=== PATIENT | female | born 1965 | race Caucasian/White ===

== ENCOUNTER 2017-12-31 07:58 | Outpatient (REF) | payer BC, SELFPAY ==
[2017-12-31 13:08] LABS: Hemoglobin A1C 8.8 % (4.5-6.2)
[2018-01-01 14:01] LABS: Varicella IgG Antibody Positive
== END 2017-12-31 08:18 ==
LOC: NCHCN 07:58
PROVIDERS: PCP Family Medicine; Visit Provider Family Medicine
DX: Z00.00 Encounter for general adult medical examination without abnormal findings (principal); E11.65 Type 2 diabetes mellitus with hyperglycemia; Z11.59 Encounter for screening for other viral diseases
CPT/HCPCS: 86787; 83036

== ENCOUNTER 2018-12-27 14:10 | Outpatient (REF) | payer BC, SELFPAY ==
[2018-12-27 18:43] LABS: HCT 35.6 % (36.0-46.0); HGB 11.4 g/dL (12.0-15.5); Mean Corpuscular Hemoglobin 28.6 pg (27.0-33.0); Mean Corpuscular Volume 89.4 fL (80-95); Mean Platelet Volume 11.9 fL (8.0-11.0); Platelet Count 261 x1000/uL (130-400); RBC 3.98 m/cumm (4.00-5.20); RBC Distribution Width 14.4 % (11.7-14.6); White Blood Cell Count 5.76 k/cumm (4.4-10.8)
[2018-12-27 18:57] LABS: ALT 18 U/L (14-59); AST 12 U/L (15-37); Albumin 3.5 g/dL (3.4-5.0); Alkaline Phosphatase 86 U/L (46-116); BUN 18 mg/dL (7-18); Bilirubin, Total 0.3 mg/dL (0.2-1.0); CREATININE 0.84 mg/dL (0.55-1.02); Chloride 104 mmol/L (98-107); Glucose 223 mg/dL (70-100); Potassium 4.3 mmol/L (3.5-5.1); Sodium 139 mmol/L (136-145); TSH (W/Ref FT4) 2.09 uIU/mL (0.36-3.74)
[2018-12-27 18:59] LABS: COMMENT (LAB VIEW ONLY) 152.28 mg/dL
[2018-12-27 19:00] LABS: Microalb ug/mg Crea 83.3 ug/mg Cr
== END 2018-12-27 14:30 ==
LOC: NCHCN 14:10
PROVIDERS: PCP Family Medicine; Visit Provider Family Medicine
DX: E11.65 Type 2 diabetes mellitus with hyperglycemia (principal); I10 Essential (primary) hypertension; F39 Unspecified mood [affective] disorder
CPT/HCPCS: 80053; 85027; 82043; 82570; 84443

== ENCOUNTER 2019-01-31 16:21 | Outpatient (REF) | payer BC, SELFPAY ==
[2019-01-31 20:24] LABS: Vitamin B12 396 pg/mL (193-986)
[2019-01-31 20:33] LABS: Folate > 20.0 ng/mL (8.6-20.0)
[2019-02-08 14:05] LABS: Methylmalonic Acid 0.15 nmol/mL (<=0.40)
== END 2019-01-31 16:41 ==
LOC: NCHCN 16:21
PROVIDERS: PCP Family Medicine; Visit Provider Family Medicine
DX: R41.3 Other amnesia (principal); E53.8 Deficiency of other specified B group vitamins
CPT/HCPCS: 80186; 82607; 82746

== ENCOUNTER 2019-04-12 09:02 | Outpatient (CLI) | payer BC, SELFPAY ==
--- NOTE | 2019-04-12 14:00 | DIABASSESS_ITS ---
DESCRIPTION/ASSESSMENT: Christy presents for diabetes self management with type 1 diabetes. Referral is for CGM Dexcom G6 support, however she requests help with diabetes management. She did not bring her glucometer today. MEDS: Manages with 24u Lantus and Humalog. Fasting blood sugar generally less than 150mg/dl. She often does not eat all day, or if she does she does not take her mealtime insulin and blood sugars do not generally rise. When she comes home from stressful days she eats and does not take her mealtime insulin. She tends to correct blood sugar before bed. In addition, Christy was prescribed Victoza which she states she does not tolerate. [facility] [place] suggested the new pill form of GLP1 agonist which is RYBELSUS. She states BYDUREON did help her but felt the benefit did not last whole 7 days. MONITOR: Christy has a G6 but was having some trouble obtaining this. She said something fell off it. States she continued to test blood sugar before meals. She denies any recent hypoglycemia. INTERVENTION: DSME is provided in the following AADE 7 areas based on patients interest and assessment of needs: Medication - Christy's inconsistent insulin administration for meals appears to be a major cause of hyperglycemia. Monitoring - Given Christy's confusion about the G6 Dexcom functioning, application and use, she will return in [address] a new sensor under guidance. Coping - remains an issue for Christy with a stressful work situation, but this will be discussed in follow up. ACTION PLAN: Individual DSME/T __1__ units billed 50 minutes face to face No DM group education series being offered at this time.
== END 2019-04-12 09:22 ==
PROVIDERS: PCP Family Medicine; Visit Provider Dietitian, Registered
DX: E11.9 Type 2 diabetes mellitus without complications (principal); Z79.4 Long term (current) use of insulin; Z71.3 Dietary counseling and surveillance
CPT/HCPCS: G0108

== ENCOUNTER 2019-07-28 11:59 | Outpatient (CLI) | payer BC, SELFPAY ==
--- NOTE | 2019-07-28 08:30 | DI.RAD_ITS ---
EXAM: XR WRIST LT COMPLETE CLINICAL HISTORY: left wrist pain. TECHNIQUE: 2D digital imaging was performed. COMPARISON: No exams were available for comparison FINDINGS: BONES: No acute fracture is present. No bony destructive lesion is seen. JOINTS: The carpal bones are normally aligned. SOFT TISSUE: Normal. IMPRESSION: Unremarkable radiographs of the left wrist. DATA REPOSITORY: RADIATION DOSE DELIVERED:
== END 2019-07-28 12:19 ==
PROVIDERS: PCP Family Medicine; Referring Provider Family Medicine; Visit Provider Physician Assistant
DX: M25.532 Pain in left wrist (principal)
CPT/HCPCS: 73110

== ENCOUNTER 2019-12-09 20:08 | Outpatient (REF) | payer BC, SELFPAY ==
[2019-12-09 19:34] LABS: HCT 36.1 % (36.0-46.0); HGB 11.3 g/dL (11.2-15.7); MCH 28.3 pg (27.0-33.0); MCHC 31.3 % (32.0-36.0); MCV 90.3 fL (80-95); MPV 12.4 fL (8.0-11.0); Platelet Count 285 10^3/uL (130-400); RDW 14.5 % (11.7-14.6); RDW-SD 47.4 fL; WBC 7.37 10^3/uL (4.4-10.8)
[2019-12-09 20:43] LABS: ALT 20 U/L (14-59); AST 13 U/L (15-37); Albumin 3.3 g/dL (3.4-5.0); Alkaline Phosphatase 100 U/L (46-116); Anion Gap 6.1 mmol/L (3-11); BUN 27 mg/dL (7-18); CO2 27.9 mmol/L (21.0-32.0); CREATININE 0.98 mg/dL (0.55-1.02); Calcium 9.2 mg/dL (8.5-10.1); Chloride 106 mmol/L (98-107); Estimated GFR 58.71 (mL/min/1.73m2); Folate 5.2 ng/mL (8.6-20.0); Glucose 306 mg/dL (74-106); Potassium 4.5 mmol/L (3.5-5.1); Sodium 140 mmol/L (136-145); TSH (W/Ref FT4) 1.77 uIU/mL (0.36-3.74); Total Protein 6.7 g/dL (6.4-8.2); Vitamin B12 355 pg/mL (193-986)
[2019-12-09 21:06] LABS: Hemoglobin A1C 9.4 % (<5.7)
[2019-12-09 21:20] LABS: Bilirubin, Total 0.2 mg/dL (0.2-1.0)
== END 2019-12-09 20:28 ==
LOC: NCHCN 20:08
PROVIDERS: PCP Family Medicine; Visit Provider Family Medicine
DX: R55 Syncope and collapse (principal)
CPT/HCPCS: 80053; 85027; 82607; 82746; 83036; 84443

== ENCOUNTER 2019-12-20 01:03 | Outpatient (CLI) | payer BC, SELFPAY ==
--- NOTE | 2019-12-20 14:40 | DI.MRI_ITS ---
EXAM: MR BRAIN WO CLINICAL HISTORY: HEADACHES, R51, ATAXIA, R27.0. TECHNIQUE: Multiplanar multisequence MRI of the brain was performed. CONTRAST MATERIAL: Noncontrast COMPARISON: No exams were available for comparison FINDINGS: VENTRICLES AND EXTRA AXIAL SPACES: Normal in size and morphology for the patient's age. HEMORRHAGE: None. CEREBRAL PARENCHYMA: No focus of restricted diffusion to suggest acute infarct. No space-occupying le jose identified. MIDLINE SHIFT: None. BRAINSTEM/CEREBELLUM: There is a small area of CSF signal in the mid left cerebellar hemisphere, whic h could be the result of a remote vascular insult. There are a few scattered tiny foci of high signa l in the white matter. The orbits and pituitary are unremarkable. Vascular flow voids appear intact. VISUALIZED PARANASAL SINUSES/MASTOIDS: Clear. IMPRESSION: Small focus of CSF signal in the left cerebellar hemisphere could be the result of an old vascular in sult. No acute abnormalities are identified. DATA REPOSITORY:
== END 2019-12-20 01:23 ==
PROVIDERS: PCP Family Medicine; Visit Provider Family Medicine
DX: R51.9 Headache, unspecified (principal); R27.0 Ataxia, unspecified; R93.0 Abnormal findings on diagnostic imaging of skull and head, not elsewhere classified
CPT/HCPCS: 70551

== ENCOUNTER 2020-01-19 01:21 | Outpatient (CLI) | payer BC, SELFPAY ==
--- NOTE | 2020-01-19 | DI.US_ITS ---
EXAM: US LOWER EXTREMITY VENOUS RT CLINICAL HISTORY: RT CALF PAIN,M79.661, TENDER LUMPY AREA RT CALF TECHNIQUE: Right lower extremity venous ultrasound performed using grayscale, color-flow, and spectr al Doppler analysis. COMPARISON: No exams were available for comparison FINDINGS: The right common femoral, femoral and popliteal veins demonstrate normal compressibility, augmentatio n, and color Doppler. The posterior tibial veins are patent. The saphenofemoral junction is unremark able. There is no evidence of a Lopez cyst. The soft tissues are unremarkable. There are varicositi es seen in the superficial soft tissues of the calf. No evidence of superficial thrombophlebitis. IMPRESSION: No evidence of a right lower extremity DVT, superficial thrombophlebitis or Lopez cyst. DATA REPOSITORY:
== END 2020-01-19 01:41 ==
PROVIDERS: PCP Family Medicine; Visit Provider Family Medicine
DX: M79.661 Pain in right lower leg (principal)
CPT/HCPCS: 93971

== ENCOUNTER 2020-01-20 00:32 | Outpatient (CLI) | payer BC, SELFPAY | END 2020-01-20 00:52 | PROVIDERS: PCP Family Medicine; Visit Provider Family Medicine | DX: R00.2 Palpitations (principal) | CPT/HCPCS: 93225 ==

== ENCOUNTER 2020-02-08 07:13 | Outpatient (CLI) | payer BC, SELFPAY | END 2020-02-08 07:33 | PROVIDERS: PCP Family Medicine; Visit Provider Family Medicine | DX: R00.2 Palpitations (principal) | CPT/HCPCS: 0296T ==

== ENCOUNTER 2020-02-09 14:45 | Outpatient (CLI) | payer BC, SELFPAY ==
--- NOTE | 2020-01-26 14:37 | HOLT_ITS ---
Date of service: 01/26/20 Time of Service: 14:48 Holter Monitor Report Referring Provider:: Deepthi Lopez Indications:: Palpitations Holter Monitor Note: This is a 48-hour Holter monitor reportedly ordered for symptoms of palpitations Rhythm throughout was sinus. Average heart rate was 76. Minimum was 64 and maximum 128 There were no ventricular dysrhythmias There were very rare atrial premature beats, a total of 4 in 48 hours There was no atrial fibrillation, no pauses greater than 3 seconds, no high- grade AV block Patient symptoms were reported
--- NOTE | 2020-02-10 | DI.MAMMO_ITS ---
EXAM: MAMMO SCREENING CLINICAL HISTORY: SCREENING, Z12.31 TECHNIQUE: Mammograms were interpreted according to the usual protocol including computer analysis w Nuji CAD system, tomosynthesis and C-view imaging. COMPARISON: 2010 through 2016 FINDINGS: The breasts are composed of scattered fibroglandular densities, Breast Density category B. No suspicious masses or suspicious microcalcifications are seen. Vascular calcifications are noted. Scattered benign calcifications are present bilaterally. No skin thickening or abnormal axillary lymph nodes are seen. There has been no significant change from prior exams. IMPRESSION: BI-RADS Category 2 - Benign Findings Yearly screening mammography is recommended. Breast Density - Category B, scattered fibroglandular densities. A negative radiographic report should not delay biopsy if a dominant or clinically suspicious mass is present. Up to ten percent of cancers are not identified on mammography. A negative report may reinforce clinical impression. Adenosis and dense breasts may obscure an underlying neoplasm. False positive reports average 6 to 10%. Patient will receive a letter notifying them of these results.
== END 2020-02-09 15:05 ==
PROVIDERS: PCP Family Medicine; Visit Provider Family Medicine
DX: R00.2 Palpitations (principal); Z12.31 Encounter for screening mammogram for malignant neoplasm of breast; R92.1 Mammographic calcification found on diagnostic imaging of breast
CPT/HCPCS: 77063; 77067; 93226

== ENCOUNTER 2020-03-26 16:09 | Outpatient (REF) | payer BC, SELFPAY ==
[2020-03-26 19:31] LABS: HCT 34.3 % (36.0-46.0); HGB 10.9 g/dL (11.2-15.7); MCH 27.9 pg (27.0-33.0); MCHC 31.8 % (32.0-36.0); MCV 87.9 fL (80-95); MPV 12.1 fL (8.0-11.0); Platelet Count 263 10^3/uL (130-400); RDW 14.4 % (11.7-14.6); RDW-SD 46.2 fL; WBC 6.79 10^3/uL (4.4-10.8)
[2020-03-26 20:06] LABS: Folate 10.2 ng/mL (8.6-20.0); Vitamin B12 464 pg/mL (193-986)
[2020-03-26 20:20] LABS: Hemoglobin A1C 8.3 % (<5.7)
[2020-03-28 10:54] LABS: Iron 57 ug/dL (50-170); Total Iron Binding Capacity 262 ug/dL (250-450); Transferrin Sat 22 % (15-50)
[2020-03-28 11:07] LABS: Ferritin 95 ng/mL (8-252)
== END 2020-03-26 16:29 ==
LOC: NCHCN 16:09
PROVIDERS: PCP Family Medicine; Visit Provider Family Medicine
DX: D64.9 Anemia, unspecified (principal); D53.1 Other megaloblastic anemias, not elsewhere classified; E11.65 Type 2 diabetes mellitus with hyperglycemia
CPT/HCPCS: 85027; 82607; 82728; 82746; 83036; 83540; 83550

== ENCOUNTER 2020-06-25 04:07 | Outpatient (CLI) | payer BC, SELFPAY ==
--- NOTE | 2020-06-25 14:00 | NS.NUTBLAN_ITS ---
Christy is a 55 year old female referred to Medical Nutrition Therapy for Diabetes Self Management Education. Wt: 270 lbs, BMI > 40. DM meds: Trucility q week, 32 units lantus AM and PM, Humalog with meals (8-10 units per meal). Most recent A1C: 8%. Has a G6 Continuous Glucose Monitor which has alerts for blood sugars <70 mg, and above 150 mg/dl. Reports severe heart burn and nausea and vomiting since starting Trucility. Reports frequent noctural hypoglycemia ( 44, 54, 47 mg/dl) since increasing lantus to 32 units BID. Has hypoglycemia unawareness, relies on G6 to alert her. Reports frequent fasting hyperglycemia in response to hypo glycemia. Nausea has been most days and makes it so she cannot eat breakfast and exercise. Diet recall indicates erratic meals, no consistent intake of carbs, often has meals with no carbs that may be contributing to elevated blood sugars due to liver output. Intervention: Recommended that Christy contact her PCP (Dr. Lopez) re: side affects of Trucility and nocturnal hypoglycemia. Also, made referral to Luciano Drake PharmD to assist with medication/side effects and optimal glycemia control. Educated on action plan for hypoglycemia and hyperglycemia. Educated on how to follow consistent carbohydrate diet with emphasis on 30 g CHO at meals, 20 g CHO at snacks paired with lean protein and healthy fats. 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 Reset G6 alarms to < 70 and > 180 mg/dl Goal: a1c 7% or lower, 10% weight loss in next 6 months Plan: Call PCP re: hypoglycemia and nausea, PCP may want to adjust medications Referral made per Pt's request to [facility] Morton D walk on treadmill daily - 7 miles per week- 150 min exercise per week. follow up appt. 07/23/20 2 pm.
== END 2020-06-25 04:08 | disposition home or self-care (01) ==
LOC: DS 04:08
PROVIDERS: PCP Family Medicine; Visit Provider Dietitian, Registered
DX: E11.65 Type 2 diabetes mellitus with hyperglycemia (principal); E11.649 Type 2 diabetes mellitus with hypoglycemia without coma; Z79.4 Long term (current) use of insulin; Z71.3 Dietary counseling and surveillance
CPT/HCPCS: 97802

== ENCOUNTER 2020-07-27 09:14 | Outpatient (REF) | payer BC, SELFPAY ==
[2020-07-27 13:03] LABS: HCT 33.1 % (36.0-46.0); HGB 10.7 g/dL (11.2-15.7); MCH 28.1 pg (27.0-33.0); MCHC 32.3 % (32.0-36.0); MCV 86.9 fL (80-95); MPV 11.9 fL (8.0-11.0); Platelet Count 268 10^3/uL (130-400); RBC 3.81 10^6/uL (3.93-5.22); RDW-SD 48.3 fL; WBC 6.98 10^3/uL (4.4-10.8)
[2020-07-27 13:34] LABS: Ferritin 96 ng/mL (8-252); Folate 8.5 ng/mL (8.6-20.0); Vitamin B12 383 pg/mL (193-986)
[2020-07-27 13:55] LABS: Hemoglobin A1C 7.7 % (<5.7)
== END 2020-07-27 09:15 | disposition home or self-care (01) ==
LOC: NCHCN 09:14
PROVIDERS: PCP Family Medicine; Visit Provider Family Medicine
DX: D64.9 Anemia, unspecified (principal); E11.65 Type 2 diabetes mellitus with hyperglycemia
CPT/HCPCS: 85027; 82607; 82728; 82746; 83036

== ENCOUNTER 2020-08-07 03:26 | Outpatient (CLI) | payer BC, SELFPAY ==
--- NOTE | 2020-08-07 14:00 | NS.NUTBLAN_ITS ---
Christy returns for Medical Nutrition Therapy for preparation for bariatric surgery and diabetes self management education. She has a Dexcom G6 continuous glucose monitor. Meds have been changed to Lantus 28 u BID, 5-8 units novolog at meals and ozempic q weekly. She reports no hypoglycemia. She is tolerating the ozempic. She does report highest BS 324 mg/dl this week when she did not eat breakfast or lunch. She reports that her tiime in range has improved but that she continues to have elevated blood sugars but is confident about how to lower them with correction factore. 5'6 Wt: 266 lbs, down 4 lbs in last 8 weeks. A1C 7.7% (07/27/20), down from 8.3% (03/26/20) Session today reviewed importance of regular meal times to avoid excess hepatic glucose secretion as evidenced by BS > 300 mg when fasting. Reviewed carb: insulin ratios and her carb counting. Reviewed correction factor per MD notes. Session to day also focused on importance of starting biotin and MVI in preparation for bariatric surgery. Christy has made a lot of positive changes to her diet/exercise and is happy to be losing weight and improving her glycemic control. We discussed how to continue to stay on track to lose weight and improve her glycemic control in preparation for bariatric surgery. Follow up appt. 09/03/20 at 2 PM.
== END 2020-08-07 03:27 | disposition home or self-care (01) ==
LOC: DS 03:27
PROVIDERS: PCP Family Medicine; Visit Provider Dietitian, Registered
DX: E11.9 Type 2 diabetes mellitus without complications (principal); Z79.4 Long term (current) use of insulin; E66.8 Other obesity; Z71.3 Dietary counseling and surveillance
CPT/HCPCS: 97803

== ENCOUNTER 2020-10-01 11:55 | Outpatient (REF) | payer BC, SELFPAY ==
[2020-10-01 13:34] LABS: HCT 36.1 % (36.0-46.0); HGB 11.3 g/dL (11.2-15.7); MCH 27.5 pg (27.0-33.0); MCHC 31.3 % (32.0-36.0); MCV 87.8 fL (80-95); Platelet Count 249 10^3/uL (130-400); RBC 4.11 10^6/uL (3.93-5.22); RDW 14.8 % (11.7-14.6); RDW-SD 47.8 fL; WBC 6.98 10^3/uL (4.4-10.8)
[2020-10-01 14:02] LABS: Iron 46 ug/dL (50-170); Total Iron Binding Capacity 265 ug/dL (250-450); Transferrin Sat 17 % (15-50)
[2020-10-01 14:30] LABS: Ferritin 109 ng/mL (8-252); Folate 8.6 ng/mL (8.6-20.0); TSH (W/Ref FT4) 1.85 uIU/mL (0.36-3.74); Vitamin B12 316 pg/mL (193-986)
[2020-10-01 14:34] LABS: Hemoglobin A1C 8.2 % (<5.7)
== END 2020-10-01 11:56 | disposition home or self-care (01) ==
LOC: NCHCN 11:55
PROVIDERS: PCP Family Medicine; Visit Provider Family Medicine
DX: D64.9 Anemia, unspecified (principal); E11.9 Type 2 diabetes mellitus without complications
CPT/HCPCS: 85027; 82607; 82728; 82746; 83036; 83540; 83550; 84443

== ENCOUNTER 2020-11-30 15:03 | Outpatient (REF) | payer BC, SELFPAY ==
[2020-11-30 13:24] LABS: HCT 35.8 % (36.0-46.0); HGB 11.3 g/dL (11.2-15.7); MCH 27.5 pg (27.0-33.0); MCHC 31.6 % (32.0-36.0); MCV 87.1 fL (80-95); Platelet Count 274 10^3/uL (130-400); RBC 4.11 10^6/uL (3.93-5.22); RDW 14.8 % (11.7-14.6); RDW-SD 47.5 fL; WBC 7.02 10^3/uL (4.4-10.8)
[2020-11-30 14:05] LABS: Folate 8.3 ng/mL (8.6-20.0); Vitamin B12 660 pg/mL (193-986)
[2020-11-30 14:16] LABS: COMMENT (LAB VIEW ONLY) 227.28 mg/dL; Microalb ug/mg Crea 41.7 ug/mg Cr
== END 2020-11-30 15:04 | disposition home or self-care (01) ==
LOC: NCHCN 15:03
PROVIDERS: PCP Family Medicine; Visit Provider Family Medicine
DX: E11.9 Type 2 diabetes mellitus without complications (principal); D51.8 Other vitamin B12 deficiency anemias
CPT/HCPCS: 85027; 82043; 82570; 82607; 82746

== ENCOUNTER 2021-06-06 10:21 | Outpatient (CLI) | payer BC, SELFPAY ==
--- NOTE | 2021-06-06 | DI.RAD_ITS ---
Exam(s) XR FINGER RT RING EXAM: XR FINGER RT RING CLINICAL HISTORY: PAIN RT FINGER M79.644, PAINFUL AND RED. TECHNIQUE: 2D digital imaging was performed. COMPARISON: CR XR WRIST LT COMPLETE from 07/28/2019 FINDINGS: BONES: No acute fracture is present. 5 millimeter lytic lesion in the proximal metaphysis of the prox imal phalanx it does not have a destructive appearance but is mildly expansile. JOINTS: No dislocation present. Minimal joint space narrowing and periarticular spurring. SOFT TISSUE: This could are calcifications visible between the 2nd and 3rd distal metacarpals. No fo reign body or abnormal gas collection. IMPRESSION: No evidence of fracture. Lytic lesion in proximal phalanx may be a pre existing benign lesion such a s enchondroma however osteomyelitis could be considered. DATA REPOSITORY: RADIATION DOSE DELIVERED:
== END 2021-06-06 10:41 ==
PROVIDERS: PCP Family Medicine; Visit Provider Family Medicine
DX: M79.644 Pain in right finger(s) (principal); R93.7 Abnormal findings on diagnostic imaging of other parts of musculoskeletal system
CPT/HCPCS: 73140

== ENCOUNTER 2021-06-21 08:11 | Outpatient (REF) | payer BC, SELFPAY ==
[2021-06-21 20:41] LABS: HCT 37.4 % (36.0-46.0); HGB 11.6 g/dL (11.2-15.7); MCH 27.4 pg (27.0-33.0); MCV 88.2 fL (80-95); MPV 11.9 fL (8.0-11.0); Platelet Count 271 10^3/uL (130-400); RBC 4.24 10^6/uL (3.93-5.22); RDW 15.2 % (11.7-14.6); RDW-SD 49.2 fL; WBC 6.51 10^3/uL (4.4-10.8)
[2021-06-21 21:20] LABS: Folate 5.7 ng/mL (8.6-20.0); Vitamin B12 396 pg/mL (193-986)
[2021-06-24 10:58] LABS: HIV-1/2 Ag & Ab Screen Negative (Negative)
== END 2021-06-21 08:12 | disposition home or self-care (01) ==
LOC: NCHCN 08:11
PROVIDERS: PCP Family Medicine; Visit Provider Family Medicine
DX: Z00.00 Encounter for general adult medical examination without abnormal findings (principal); D51.8 Other vitamin B12 deficiency anemias; Z11.4 Encounter for screening for human immunodeficiency virus [HIV]
CPT/HCPCS: 85027; 87389; 82607; 82746

== ENCOUNTER 2021-07-05 13:34 | Emergency (ER) | payer OTHER, SELFPAY ==
[2021-07-05 13:41] VITALS: BP 163/71; PULSE 78; RESP 18; TEMP 36.6; O2SAT 99
--- NOTE | 2021-07-05 14:12 | ED.GENADUL_ITS ---
Discharge Plan Disposition Patient Disposition: HOME Condition: Stable Discharge Details Clinical Impression: Back pain Primary Care Provider: Deepthi Lopez ED Provider: Rick Joseph Home Meds and New Rx's Prescriptions: New cyclobenzaprine 5 mg tablet 5 mg PO TID PRNQty: 10 0RF Continued Contrave 1 EACH tablet extended release 1 ea PO BID 0RF lisinopril 40 MG tablet 40 mg PO DAILY 0RF metformin 500 MG tablet extended release 24 hr 2,000 mg PO DAILY 0RF insulin lispro [Humalog KwikPen Insulin] 300 UNITS/3 ML insulin pen 8 - 15 units Sub-Q AC 0RF Label Comments: SLIDING SCALE/CHO Lantus Solostar U-100 Insulin 100 unit/mL (3 mL) insulin pen 26 unit subcut BID 0RF Discharge Instructions Instructions: Back Pain (ED) Additional Instructions: Flexeril as directed, this medication may cause drowsiness. [id number] Tylenol and Motrin as directed for discomfort. Gentle stretching as tolerated. Cool and/or warm compresses every 2 hours for 20 minutes. Please watch for new or worsening symptoms and return to the ER for any concerns. I would like you to contact your primary care provider on Thursday to discuss your ER visit and ongoing symptoms and discuss outpatient reevaluation. If symptoms are to persist then outpatient referral to physical therapy may be indicated. 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 She denies recent illness, any other trauma, numbness, tingling, weakness, radiation of pain, bowel or bladder incontinence or retention, saddle paresthesias. Clinically her pain is over the right SI joint, not midline. I do not believe that x-ray is indicated. Clinically she appears well, nontoxic and neurologically intact. Will provide a single dose of Toradol now. Patient drove here so I will provide a prescription for a muscle relaxer. Standard discharge and return precautions were provided. Patient understands, is agreeable to this plan, and has no additional questions or concerns upon discharge. This documentation was generated using [employer] system, please disregard any oddities of phrase or misspellings. Medical Records Medical records reviewed: Yes I reviewed the patient's medical records. HPI General Mode of arrival: ambulatory . Date/Time Provider Initiated Documentation: 07/05/21 13:35 . Limitations to Documentation: no limitations . Information obtained by: patient . History of Present Illness 56 year old F presents to the emergency department with the chief complaint of back pain, described as moderate, with intensity rated at 7. Quality is described as aching, and is localized to the back and right. Patient reports no radiation. Patient started experiencing this hour(s) (4) and it has been constant. improves with Immobilization improves symptom(s), Movement worsens symptoms . Patient notes no other symptoms.. Patient did receive the following treatments prior to arrival, NSAID Related Data Home Medications Medication Instructions Recorded Confirmed insulin lispro 100 unit/mL 8 - 15 units SUB-Q AC 09/23/12 07/05/21 subcutaneous pen (Humalog KwikPen (U-100) Insulin) lisinopril 40 mg tablet 40 mg PO DAILY 09/23/12 07/05/21 metformin 500 mg tablet,extended 2,000 mg PO DAILY 09/23/12 07/05/21 release 24 hr Contrave 8 mg-90 mg 1 ea PO BID NS 02/10/17 02/16/20 tablet,extended release (naltrexone-bupropion) insulin glargine 100 unit/mL (3 26 unit SUBCUT BID ml 07/28/19 07/05/21 mL) subcutaneous pen (Lantus Solostar U-100 Insulin) cyclobenzaprine 5 mg tablet 5 mg PO TID PRN #10 tab 07/05/21 Previous Rx's Medication Instructions Recorded cyclobenzaprine 5 mg tablet 5 mg PO TID PRN #10 tab 07/05/21 Allergies Allergy/AdvReac Type Severity Reaction Status Date / Time Penicillins AdvReac Intermediate Nausea Unverified 02/16/20 09:18 General Stated Complaint: Nk/Back Pain PRERNA: 4 Review of Systems Constitutional Constitutional: Denies fever(s) and Denies weakness Cardiovascular Cardiovascular: Denies chest pain Respiratory Respiratory: Denies cough Gastrointestinal Gastrointestinal: Denies abdominal pain, Denies fecal incontinence, Denies nausea and Denies vomiting Genitourinary Genitourinary: Denies urinary incontinence Musculoskeletal Musculoskeletal: Reports back pain, Denies numbness, Reports stiffness and Denies tingling Integumentary/Breasts Skin/Breast: Denies rash Neurologic Neurologic: Denies numbness, Denies tingling and Denies weakness PFSH All Active Problems (Updated 07/05/21 @ 14:35 by THI Smith) Back pain (Acute) Dupuytren's contracture of right hand (Acute) Tendinitis of flexor tendon of right hand (Acute) Depo-Medrol injection - right middle finger A1 bandar: 02/16/20 Hypertension, benign (Acute) Depression (Chronic) Vitamin B12 deficiency (Acute) Neoplasm of unspecified behavior of bone, soft tissue, and skin (Acute) SK (seborrheic keratosis) (Acute) Medical History DM (diabetes mellitus) HTN (hypertension) Obesity ALEXANDRA (obstructive sleep apnea) Surgical History Cholecystectomy Colonoscopy - MAC (02/27/17) Social History Smoking/Tobacco Use Status: Former Tobacco Use Smoking risk assessment performed?: Yes Alcohol Intake: never Drug use: Never Substance use type: does not use Do you feel safe at home: Yes Do you feel safe in your relationship?: Yes Exam Const General: cooperative, healthy appearing, comfortable and no acute distress Orientation: alert and awake [facility] Head: normal to inspection, normocephalic and atraumatic Face and sinus: normal facial exam Mouth: moist mucous membranes Eyes General: appearance normal, both eyes and all related structures Conjunctivae: conjunctivae normal Neck Neck: normal visual inspection, trachea midline and supple Resp Effort & Inspection: normal respiratory effort and able to speak in complete sentences Auscultation: clear to auscultation bilaterally Cardio Rate: regular rate Rhythm: regular rhythm GI Palpation: soft and nontender Back/Spine/Pelvis Back: no CVA tenderness and back tenderness Thoracic/Lumbar Spine: thoraco-lumbar ROM normal, No thoracic spinal tenderness and straight leg raise positive (R 15 degrees) Pelvis: no pain with anterior-posterior compression and no pain with lateral compression Sacroiliac joints: on the right tender to palpation Skin General skin exam: no rashes or lesions noted Neuro General: patient alert, patient awake, moves all extremities and no focal motor deficits Sensory Exam: no sensory deficits noted Psych Appearance: grossly normal Mental Status: mental status grossly normal Course Vital Signs Vital signs: Vital Signs Temperature 36.6 C 07/05/21 13:41 Pulse 78 07/05/21 13:41 Respiratory Rate 18 07/05/21 13:41 Blood Pressure 163/71 H 07/05/21 13:41 Pulse Oximetry 99 07/05/21 13:41 Temperature 36.6 C 07/05/21 13:41 Temperature Source Tympanic 07/05/21 13:41 Pulse 78 07/05/21 13:41 Respiratory Rate 18 07/05/21 13:41 Respiratory Effort 07/05/21 13:45 Blood Pressure 163/71 H 07/05/21 13:41 Blood Pressure Position Sitting 07/05/21 13:41 Pulse Oximetry 99 07/05/21 13:41 Oxygen Delivery Method Room Air 07/05/21 13:41 Oxygen Flow Rate 0 07/05/21 13:41 Pain Level 5 07/05/21 13:41
[2021-07-05] MEDS: Ketorolac 60 MG/2 ML VIAL IM (14:27)
== END 2021-07-05 14:42 | disposition home or self-care (01) ==
PROVIDERS: Emergency Provider Physician Assistant; PCP Family Medicine
DX: M54.50 Low back pain, unspecified (principal); X50.1XXA Overexertion from prolonged static or awkward postures, initial encounter; Y99.0 Civilian activity done for income or pay
CPT/HCPCS: 96372; 99284; 99283; J1885

== ENCOUNTER 2021-09-27 20:49 | Outpatient (REF) | payer BC, SELFPAY ==
[2021-09-27 15:28] LABS: HCT 36.4 % (36.0-46.0); HGB 11.4 g/dL (11.2-15.7); MCH 27.5 pg (27.0-33.0); MCHC 31.3 % (32.0-36.0); MCV 88 fL (80-95); MPV 11.9 fL (8.0-11.0); Platelet Count 250 10^3/uL (130-400); RBC 4.14 10^6/uL (3.93-5.22); RDW 14.6 % (11.7-14.6); RDW-SD 47.4 fL; WBC 6.63 10^3/uL (4.4-10.8)
[2021-09-27 15:46] LABS: Hemoglobin A1C 7.6 % (<5.7)
[2021-09-27 16:12] LABS: ALT 18 U/L (14-59); AST 18 U/L (15-37); Albumin 3.3 g/dL (3.4-5.0); Alkaline Phosphatase 81 U/L (46-116); Anion Gap 9.8 mmol/L (3-11); BUN 19 mg/dL (7-18); Bilirubin, Total 0.2 mg/dL (0.2-1.0); CO2 25.2 mmol/L (21.0-32.0); Calcium 9.1 mg/dL (8.5-10.1); Chloride 108 mmol/L (98-107); Estimated GFR 56.95 (mL/min/1.73m2); Folate 7.7 ng/mL (8.6-20.0); Glucose 141 mg/dL (74-106); Potassium 3.9 mmol/L (3.5-5.1); Sodium 143 mmol/L (136-145); Total Protein 7.1 g/dL (6.4-8.2)
[2021-09-27 16:47] LABS: Vitamin B12 > 2000 pg/mL (193-986)
[2021-09-27 17:35] LABS: COMMENT (LAB VIEW ONLY) 232.96 mg/dL; Microalb ug/mg Crea 37.2 ug/mg Cr
== END 2021-09-27 20:50 | disposition home or self-care (01) ==
LOC: NCHCN 20:49
PROVIDERS: PCP Family Medicine; Visit Provider Family Medicine
DX: D51.8 Other vitamin B12 deficiency anemias (principal); E11.9 Type 2 diabetes mellitus without complications; I10 Essential (primary) hypertension
CPT/HCPCS: 80053; 85027; 82043; 82570; 82607; 82746; 83036

== ENCOUNTER 2021-10-28 18:41 | Emergency (ER) | payer BC, SELFPAY ==
[2021-10-28] VITALS (8 sets, daily range): BP systolic 134–151; BP diastolic 51–53; PULSE 80–89; RESP 16–18; TEMP 37.2–39; O2SAT 95–96
--- NOTE | 2021-10-28 19:00 | DI.RAD_ITS ---
Exam(s) XR PORTABLE CHEST AP EXAM: XR PORTABLE CHEST AP CLINICAL HISTORY: fever. TECHNIQUE: 2D digital imaging was performed. COMPARISON: CR CHEST 2 VIEWS PA,LAT from 09/25/2013 FINDINGS: LUNGS: Clear. No pleural abnormality seen. HEART: Normal. MEDIASTINUM: Normal. OTHER FINDINGS: None. IMPRESSION: No acute pulmonary findings. DATA REPOSITORY: RADIATION DOSE DELIVERED: Total DLP
[2021-10-28] MEDS: Normal Saline 1,000 ML 1000 ML IV ×2 (19:17)
[2021-10-28 19:27] LABS: Lactate 1.1 mmol/L (0.6-1.4)
[2021-10-28 19:34] LABS: Abs Immature Grans 0.03 10^3/uL (0.0-0.06); Absolute Basophil Count 0.03 10^3/uL (0.0-0.2); Absolute Eosinophil Count 0.04 10^3/uL (0.0-0.7); Absolute Lymphocyte Count 0.88 10^3/uL (1.2-3.4); Absolute Monocyte Count 0.71 10^3/uL (0.1-0.8); Absolute Neutrophil Count 4.77 10^3/uL (1.2-6.7); Basophils % 0.5; Eosinophils % 0.6; HCT 31.7 % (36.0-46.0); HGB 10.5 g/dL (11.2-15.7); Immature Grans % 0.5; Lymphocytes % 13.6; MCH 28.2 pg (27.0-33.0); MCHC 33.1 % (32.0-36.0); MCV 85 fL (80-95); MPV 11.3 fL (8.0-11.0); Neutrophils % 73.8; Platelet Count 204 10^3/uL (130-400); RBC 3.73 10^6/uL (3.93-5.22); RDW 14.5 % (11.7-14.6); RDW-SD 45.2 fL; WBC 6.46 10^3/uL (4.4-10.8)
[2021-10-28 19:37] LABS: ESR 50 mm/hr (0-30)
[2021-10-28 19:50] LABS: ALT 13 U/L (14-59); AST 10 U/L (15-37); Albumin 2.8 g/dL (3.4-5.0); Alkaline Phosphatase 86 U/L (46-116); Anion Gap 7.2 mmol/L (3-11); BUN 14 mg/dL (7-18); Bilirubin, Total 0.5 mg/dL (0.2-1.0); C-Reactive Protein 17.46 mg/dL (0.0-0.3); CO2 27.8 mmol/L (21.0-32.0); CREATININE 1.2 mg/dL (0.55-1.02); Calcium 8.9 mg/dL (8.5-10.1); Chloride 103 mmol/L (98-107); Estimated GFR 46.14 (mL/min/1.73m2); Glucose 162 mg/dL (74-106); Potassium 3.8 mmol/L (3.5-5.1); Sodium 138 mmol/L (136-145); Total Protein 7.2 g/dL (6.4-8.2)
[2021-10-28 20:09] LABS: INR 1.1 (0.9-1.1); Prothrombin Time 10.9 sec (9.3-11.0)
[2021-10-28] MEDS: Acetaminophen 500 MG TAB 1000 MG PO (20:18)
[2021-10-28] MEDS: Ondansetron 4 MG/2 ML VIAL IVP (20:19)
--- NOTE | 2021-10-28 20:31 | DI.VRAD_ITS ---
PROCEDURE INFORMATION: Exam: XR Chest Exam date and time: 10/28/2021 7:46 PM Age: 56 years old Clinical indication: Fever TECHNIQUE: Imaging protocol: Radiologic exam of the chest. Views: 1 view. COMPARISON: No relevant prior studies available. FINDINGS: Lungs: Normal pulmonary expansion. Pulmonary vasculature grossly normal. Mild bandlike density projects over the medial right lung base probably representing superimposed vasculature or bandlike atelectasis in the right middle lobe. Patchy basilar infiltrate less likely. Pleural spaces: No pleural effusion. No pneumothorax. Heart/Mediastinum: Heart size within normal limits for portable AP lordotic technique. No tracheal/mediastinal shift. Bones/joints: No acute osseous abnormalities are identified. IMPRESSION: Bandlike density in the medial right base is probably vascular shadows or mild bandlike atelectasis. Patchy basilar infiltrate less likely. Dictated and Authenticated by: Feng Allen MD. Ordering:PILI Cabrera MD
[2021-10-28 20:35] LABS: COVID-19 PCR Negative (Negative); Influenza A PCR Negative (Negative); Influenza B PCR Negative (Negative); RSV PCR Negative (Negative)
[2021-10-28 21:05] LABS: Bilirubin Negative (Negative); Blood Moderate (Negative); Clarity Cloudy (Clear); Glucose Negative (Negative); Ketones 40 mg/dL (Negative); Leukocyte Esterase Large (Negative); Nitrite Positive (Negative); Urobilinogen 0.2 EU/dL (Up TO 0.2); pH 6.5 (5-8)
[2021-10-28 21:18] LABS: WBC >50 HPF (0-5)
[2021-10-28 21:20] LABS: C & S Indicated? Yes
--- NOTE | 2021-10-28 21:25 | ED.GENADUL_ITS ---
Discharge Plan Disposition Patient Disposition: HOME Condition: Improving Discharge Details Clinical Impression: UTI (urinary tract infection) Primary Care Provider: Deepthi Lopez ED Provider: Rick Joseph Home Meds and New Rx's Prescriptions: New sulfamethoxazole-trimethoprim [Bactrim DS] 800-160 mg tablet 1 tab PO BID Qty: 14 0RF Continued lisinopril 40 MG tablet 40 mg PO DAILY metformin 500 MG tablet extended release 24 hr 2,000 mg PO DAILY insulin lispro [Humalog KwikPen Insulin] 300 UNITS/3 ML insulin pen 10 - 15 units Sub-Q AC Label Comments: SLIDING SCALE/CHO insulin glargine [Lantus Solostar U-100 Insulin] 100 unit/mL (3 mL) insulin pen See Rx Instructions .ROUTE .COMPLEX Rx Instructions: Take 38 units SQ in the AM and 10-12 units at HS Discharge Instructions Instructions: Urinary Tract Infection in Women (ED) Additional Instructions: Bactrim as directed. Plenty of fluids to avoid dehydration. [id number] medications as directed for symptomatic control. Please watch for new or worsening symptoms and return to the ER for any concerns. Lastly, please contact your primary care provider tomorrow to discuss your ER visit need for outpatient reevaluation Discharge Data Discharge Date/Time-TO BE ENTERED AT DEPARTURE: 10/28/21 22:36 Medical Decision Making This is a 66-year-old female, insulin-dependent diabetic, presenting reporting simply not feeling well for the past few days, subjective chills, elevated glucose level, nausea concern for dehydration. Clinically she appears nontoxic but does present with a temperature of 39.0. Differential includes but not excluded to infectious process, DKA, hyperglycemia, etc. Plan is to initiate septic work-up, give IV fluids, Zofran, Tylenol, reassess. Upon assessment patient reports subjective improvement of her symptoms, no longer febrile. Laboratory values reveal no evidence of leukocytosis. Anemia, denies any GI bleeding. Platelet count appropriate at 204. ESR is elevated at 50. Lactate normal at 1.1 electrolytes unremarkable creatinine 1.2 with a GFR of 46.14. Patient will be provided another liter of IV fluid. Glucose 162. No elevated anion gap. No clinical evidence of DKA. CRP elevated at 17.46. Urinalysis does reveal 40 ketones, positive nitrates, large leuk esterase, greater than 50 white cells. Culture pending. Given her nonspecific inflammatory markers, febrile illness, will obtain tickborne panel as well. COVID-negative Urinalysis consistent with UTI. Patient has not had any vomiting under my care and is tolerating p.o. intake with Zofran. She is afebrile and appears well, nontoxic. Clinically low suspicion for acute pyelonephritis. We will initiate antibiotic therapy, first dose of Bactrim given here in the ER. Standard discharge and return precautions were provided. Patient understands, is agreeable to this plan, and has no additional questions or concerns upon discharge. This documentation was generated using [employer] system, please disregard any oddities of phrase or misspellings. Medical Records Medical records reviewed: Yes I reviewed the patient's medical records. Imaging Data Radiologic Study: Attestation: I personally reviewed and interpreted this imaging study as follows: Imaging: X-Ray Radiologist's impression: Exam(s) XR PORTABLE CHEST AP EXAM:? XR PORTABLE CHEST AP CLINICAL HISTORY: ? fever.? TECHNIQUE:? 2D digital imaging was performed. COMPARISON:? CR CHEST 2 VIEWS PA,LAT from 09/25/2013 FINDINGS: LUNGS: Clear. No pleural abnormality seen. HEART: Normal. MEDIASTINUM: Normal. OTHER FINDINGS: None. IMPRESSION: No acute pulmonary findings. Lab Data Lab results reviewed: Yes I reviewed the patient's lab results. Labs: 10/28/21 19:50 Blood Blood Culture - Preliminary NO GROWTH 24 HOURS 10/28/21 19:20 Blood Blood Culture - Preliminary NO GROWTH 24 HOURS 10/28/21 20:55 Urine - Reflex from Ua Urine Culture - Pending Laboratory Tests Range/Units 10/28/21 10/28/21 10/28/21 19:20 19:20 19:20 WBC (4.4-10.8) 10^3/uL 6.46 RBC (3.93-5.22) 10^6/uL 3.73 L Hgb (11.2-15.7) g/dL 10.5 L Hct (36.0-46.0) % 31.7 L MCV (80-95) fL 85 MCH (27.0-33.0) pg 28.2 MCHC (32.0-36.0) % 33.1 RDW (11.7-14.6) % 14.5 Plt Count (130-400) 10^3/uL 204 MPV (8.0-11.0) fL 11.3 H Immature Gran % 0.5 Neutrophils % 73.8 Lymphocytes % 13.6 Monocytes % 11.0 Eosinophils % 0.6 Basophils % 0.5 Nucleated RBC % (0.0-0.3) % 0.0 Absolute Neutrophils (1.2-6.7) 10^3/uL 4.77 Absolute Lymphocytes (1.2-3.4) 10^3/uL 0.88 L Absolute Monocytes (0.1-0.8) 10^3/uL 0.71 Absolute Eosinophils (0.0-0.7) 10^3/uL 0.04 Absolute Basophils (0.0-0.2) 10^3/uL 0.03 ESR (0-30) mm/hr PT (9.3-11.0) sec INR (0.9-1.1) VBG Lactate (0.6-1.4) mmol/L 1.1 Sodium (136-145) mmol/L 138 Potassium (3.5-5.1) mmol/L 3.8 Chloride (98-107) mmol/L 103 Carbon Dioxide (21.0-32.0) mmol/L 27.8 Anion Gap (3-11) mmol/L 7.2 BUN (7-18) mg/dL 14 Creatinine (0.55-1.02) mg/dL 1.2 H Estimated GFR/1.73 m2 (mL/min/1.73m2) 46.14 Glucose (74-106) mg/dL 162 H Calcium (8.5-10.1) mg/dL 8.9 Total Bilirubin (0.2-1.0) mg/dL 0.5 AST (15-37) U/L 10 L ALT (14-59) U/L 13 L Alkaline Phosphatase (46-116) U/L 86 C-Reactive Protein (0.0-0.3) mg/dL 17.46 H Total Protein (6.4-8.2) g/dL 7.2 Albumin (3.4-5.0) g/dL 2.8 L Urine Color (Yellow) Urine Clarity (Clear) Urine pH (5-8) Ur Specific [place] (1.005-1.025) Urine Protein (Negative) mg/dL Urine Ketones (Negative) mg/dL Urine Blood (Negative) Urine Nitrite (Negative) Urine Bilirubin (Negative) Urine Urobilinogen (Up TO 0.2) EU/dL Ur Leukocyte Esterase (Negative) Urine RBC (0-2) HPF Urine WBC (0-5) HPF Ur Epithelial Cells (Negative) HPF Urine Crystals Urine Bacteria (Negative) HPF Urine Mucus Ur Culture Indicated? Urine Glucose (Negative) mg/dL COVID-19 Source SARS-CoV-2 (PCR) (Negative) Influenza Type A (PCR) (Negative) Influenza Type B (PCR) (Negative) RSV (PCR) (Negative) Range/Units 10/28/21 10/28/21 10/28/21 19:20 19:20 19:50 WBC (4.4-10.8) 10^3/uL RBC (3.93-5.22) 10^6/uL Hgb (11.2-15.7) g/dL Hct (36.0-46.0) % MCV (80-95) fL MCH (27.0-33.0) pg MCHC (32.0-36.0) % RDW (11.7-14.6) % Plt Count (130-400) 10^3/uL MPV (8.0-11.0) fL Immature Gran % Neutrophils % Lymphocytes % Monocytes % Eosinophils % Basophils % Nucleated RBC % (0.0-0.3) % Absolute Neutrophils (1.2-6.7) 10^3/uL Absolute Lymphocytes (1.2-3.4) 10^3/uL Absolute Monocytes (0.1-0.8) 10^3/uL Absolute Eosinophils (0.0-0.7) 10^3/uL Absolute Basophils (0.0-0.2) 10^3/uL ESR (0-30) mm/hr 50 H PT (9.3-11.0) sec 10.9 INR (0.9-1.1) 1.1 VBG Lactate (0.6-1.4) mmol/L Sodium (136-145) mmol/L Potassium (3.5-5.1) mmol/L Chloride (98-107) mmol/L Carbon Dioxide (21.0-32.0) mmol/L Anion Gap (3-11) mmol/L BUN (7-18) mg/dL Creatinine (0.55-1.02) mg/dL Estimated GFR/1.73 m2 (mL/min/1.73m2) Glucose (74-106) mg/dL Calcium (8.5-10.1) mg/dL Total Bilirubin (0.2-1.0) mg/dL AST (15-37) U/L ALT (14-59) U/L Alkaline Phosphatase (46-116) U/L C-Reactive Protein (0.0-0.3) mg/dL Total Protein (6.4-8.2) g/dL Albumin (3.4-5.0) g/dL Urine Color (Yellow) Urine Clarity (Clear) Urine pH (5-8) Ur Specific [place] (1.005-1.025) Urine Protein (Negative) mg/dL Urine Ketones (Negative) mg/dL Urine Blood (Negative) Urine Nitrite (Negative) Urine Bilirubin (Negative) Urine Urobilinogen (Up TO 0.2) EU/dL Ur Leukocyte Esterase (Negative) Urine RBC (0-2) HPF Urine WBC (0-5) HPF Ur Epithelial Cells (Negative) HPF Urine Crystals Urine Bacteria (Negative) HPF Urine Mucus Ur Culture Indicated? Urine Glucose (Negative) mg/dL COVID-19 Source Not Applicable SARS-CoV-2 (PCR) (Negative) Negative Influenza Type A (PCR) (Negative) Negative Influenza Type B (PCR) (Negative) Negative RSV (PCR) (Negative) Negative Range/Units 10/28/21 20:55 WBC (4.4-10.8) 10^3/uL RBC (3.93-5.22) 10^6/uL Hgb (11.2-15.7) g/dL Hct (36.0-46.0) % MCV (80-95) fL MCH (27.0-33.0) pg MCHC (32.0-36.0) % RDW (11.7-14.6) % Plt Count (130-400) 10^3/uL MPV (8.0-11.0) fL Immature Gran % Neutrophils % Lymphocytes % Monocytes % Eosinophils % Basophils % Nucleated RBC % (0.0-0.3) % Absolute Neutrophils (1.2-6.7) 10^3/uL Absolute Lymphocytes (1.2-3.4) 10^3/uL Absolute Monocytes (0.1-0.8) 10^3/uL Absolute Eosinophils (0.0-0.7) 10^3/uL Absolute Basophils (0.0-0.2) 10^3/uL ESR (0-30) mm/hr PT (9.3-11.0) sec INR (0.9-1.1) VBG Lactate (0.6-1.4) mmol/L Sodium (136-145) mmol/L Potassium (3.5-5.1) mmol/L Chloride (98-107) mmol/L Carbon Dioxide (21.0-32.0) mmol/L Anion Gap (3-11) mmol/L BUN (7-18) mg/dL Creatinine (0.55-1.02) mg/dL Estimated GFR/1.73 m2 (mL/min/1.73m2) Glucose (74-106) mg/dL Calcium (8.5-10.1) mg/dL Total Bilirubin (0.2-1.0) mg/dL AST (15-37) U/L ALT (14-59) U/L Alkaline Phosphatase (46-116) U/L C-Reactive Protein (0.0-0.3) mg/dL Total Protein (6.4-8.2) g/dL Albumin (3.4-5.0) g/dL Urine Color (Yellow) Yellow Urine Clarity (Clear) Cloudy Urine pH (5-8) 6.5 Ur Specific [place] (1.005-1.025) 1.020 Urine Protein (Negative) mg/dL 100 H Urine Ketones (Negative) mg/dL 40 H Urine Blood (Negative) Moderate H Urine Nitrite (Negative) Positive H Urine Bilirubin (Negative) Negative Urine Urobilinogen (Up TO 0.2) EU/dL 0.2 Ur Leukocyte Esterase (Negative) Large H Urine RBC (0-2) HPF Urine WBC (0-5) HPF >50 H Ur Epithelial Cells (Negative) HPF Urine Crystals Not Applicable Urine Bacteria (Negative) HPF Urine Mucus Not Applicable Ur Culture Indicated? Yes Urine Glucose (Negative) mg/dL Negative COVID-19 Source SARS-CoV-2 (PCR) (Negative) Influenza Type A (PCR) (Negative) Influenza Type B (PCR) (Negative) RSV (PCR) (Negative) HPI General Mode of arrival: ambulatory . Date/Time Provider Initiated Documentation: 10/28/21 19:05 . Limitations to Documentation: no limitations . Information obtained by: patient and family . HPI Narrative: This is a 56-year-old female, past medical history of hypertension, insulin- dependent diabetes, depression, presenting to the ER reporting that she is simply not feeling well for the past 2-3 days, chills, mild low back pain, glucose as high as the 400s, occasional nausea, concern for dehydration. She reports glucose prior to arrival was in the 100s. She denies sick contacts, documented fever, headache, neck pain, chest pain, shortness of breath, abdominal pain, dysuria, hematuria, skin rash. She has not taken any bozb-zvd-abfuzcy medications for her symptoms prior to arrival Related Data Home Medications Medication Instructions Recorded Confirmed insulin lispro 100 unit/mL 10 - 15 units subcut AC 09/23/12 10/28/21 subcutaneous pen (Humalog KwikPen (U-100) Insulin) lisinopril 40 mg tablet 40 mg PO DAILY 09/23/12 10/28/21 metformin 500 mg tablet,extended 2,000 mg PO DAILY 09/23/12 10/28/21 release 24 hr insulin glargine 100 unit/mL (3 See Rx Instructions .Route .COMPLEX 07/28/19 10/28/21 mL) subcutaneous pen (Lantus Solostar U-100 Insulin) sulfamethoxazole 800 1 tab PO BID #14 tabs 10/28/21 mg-trimethoprim 160 mg tablet (Bactrim DS) Previous Rx's Medication Instructions Recorded sulfamethoxazole 800 1 tab PO BID #14 tabs 10/28/21 mg-trimethoprim 160 mg tablet (Bactrim DS) Allergies Allergy/AdvReac Type Severity Reaction Status Date / Time Penicillins AdvReac Intermediate Nausea Unverified 10/28/21 18:55 General Stated Complaint: Nausea/Vomit/Diar PRERNA: 3 Review of Systems Constitutional Constitutional: Reports chills, Denies fatigue, Denies fever(s) and Denies weakness ENT Ears, Nose, Mouth, and Throat: Denies neck pain Cardiovascular Cardiovascular: Denies chest pain and Denies dyspnea Respiratory Respiratory: Denies cough and Denies dyspnea Gastrointestinal Gastrointestinal: Denies abdominal pain, Denies nausea and Denies vomiting Genitourinary Genitourinary: Denies hematuria and Denies dysuria Musculoskeletal Musculoskeletal: Reports back pain, Reports myalgias, Denies neck pain, Denies numbness and Denies tingling Integumentary/Breasts Skin/Breast: Denies rash Neurologic Neurologic: Denies numbness, Denies tingling and Denies weakness Endocrine Endocrine: Denies fatigue PFSH All Active Problems UTI (urinary tract infection) (Acute) Dupuytren's contracture of right hand (Acute) Tendinitis of flexor tendon of right hand (Acute) Depo-Medrol injection - right middle finger A1 bandar: 02/16/20 Hypertension, benign (Acute) Depression (Chronic) Vitamin B12 deficiency (Acute) Neoplasm of unspecified behavior of bone, soft tissue, and skin (Acute) SK (seborrheic keratosis) (Acute) Medical History DM (diabetes mellitus) HTN (hypertension) Obesity ALEXANDRA (obstructive sleep apnea) Surgical History Cholecystectomy Colonoscopy - MAC (02/27/17) Social History Smoking/Tobacco Use Status: Former Tobacco Use Smoking risk assessment performed?: Yes Alcohol Intake: never Drug use: Never Substance use type: does not use Do you feel safe at home: Yes Do you feel safe in your relationship?: Yes Exam Const General: cooperative, healthy appearing, comfortable and no acute distress Orientation: alert and awake [facility] Head: normal to inspection, normocephalic and atraumatic Face and sinus: normal facial exam Mouth: moist mucous membranes Throat: posterior oropharynx normal Eyes General: appearance normal, both eyes and all related structures Conjunctivae: conjunctivae normal Neck Neck: normal visual inspection, full ROM, no meningeal signs, trachea midline and supple Resp Effort & Inspection: normal respiratory effort and able to speak in complete sentences Auscultation: clear to auscultation bilaterally Cardio Rate: regular rate Rhythm: regular rhythm GI Palpation: soft, not firm, no guarding, no pulsatile masses and nontender Auscultation: normal bowel sounds Back/Spine/Pelvis Back: No back tenderness Skin General skin exam: no rashes or lesions noted Neuro General: patient alert, patient awake, moves all extremities and no focal motor deficits Cognition: normal cognition Speech: speech normal Gait: normal gait Motor: muscle tone normal throughout Sensory Exam: no sensory deficits noted Extrem General: normal to inspection, full ROM and capillary refill normal Psych Appearance: grossly normal Mental Status: mental status grossly normal Course Vital Signs Vital signs: Vital Signs Temperature 39.0 C H 10/28/21 18:48 Pulse 89 10/28/21 18:48 Respiratory Rate 17 10/28/21 18:48 Blood Pressure 151/51 H 10/28/21 18:48 Pulse Oximetry 96 10/28/21 18:48 Temperature 37.2 C 10/28/21 21:17 Temperature Source Oral 10/28/21 21:17 Pulse 81 10/28/21 21:17 Respiratory Rate 16 10/28/21 21:17 Respiratory Effort Non-Labored 10/28/21 18:52 Blood Pressure 134/51 L 10/28/21 21:17 Blood Pressure Position Sitting 10/28/21 18:48 Pulse Oximetry 95 10/28/21 21:17 Oxygen Delivery Method Room Air 10/28/21 21:17 Oxygen Flow Rate 0 10/28/21 21:17 Pain Level 0 10/28/21 18:48 Lab/Test Results Lab/Test Results: 10/28/21 20:55 Urine - Reflex from Ua Urine Culture - Pending 10/28/21 19:50 Blood Blood Culture - Pending 10/28/21 19:20 Blood Blood Culture - Pending Laboratory Tests Range/Units 10/28/21 10/28/21 10/28/21 19:20 19:20 19:20 WBC (4.4-10.8) 10^3/uL 6.46 RBC (3.93-5.22) 10^6/uL 3.73 L Hgb (11.2-15.7) g/dL 10.5 L Hct (36.0-46.0) % 31.7 L MCV (80-95) fL 85 MCH (27.0-33.0) pg 28.2 MCHC (32.0-36.0) % 33.1 RDW (11.7-14.6) % 14.5 Plt Count (130-400) 10^3/uL 204 MPV (8.0-11.0) fL 11.3 H Immature Gran % 0.5 Neutrophils % 73.8 Lymphocytes % 13.6 Monocytes % 11.0 Eosinophils % 0.6 Basophils % 0.5 Nucleated RBC % (0.0-0.3) % 0.0 Absolute Neutrophils (1.2-6.7) 10^3/uL 4.77 Absolute Lymphocytes (1.2-3.4) 10^3/uL 0.88 L Absolute Monocytes (0.1-0.8) 10^3/uL 0.71 Absolute Eosinophils (0.0-0.7) 10^3/uL 0.04 Absolute Basophils (0.0-0.2) 10^3/uL 0.03 ESR (0-30) mm/hr PT (9.3-11.0) sec INR (0.9-1.1) VBG Lactate (0.6-1.4) mmol/L 1.1 Sodium (136-145) mmol/L 138 Potassium (3.5-5.1) mmol/L 3.8 Chloride (98-107) mmol/L 103 Carbon Dioxide (21.0-32.0) mmol/L 27.8 Anion Gap (3-11) mmol/L 7.2 BUN (7-18) mg/dL 14 Creatinine (0.55-1.02) mg/dL 1.2 H Estimated GFR/1.73 m2 (mL/min/1.73m2) 46.14 Glucose (74-106) mg/dL 162 H Calcium (8.5-10.1) mg/dL 8.9 Total Bilirubin (0.2-1.0) mg/dL 0.5 AST (15-37) U/L 10 L ALT (14-59) U/L 13 L Alkaline Phosphatase (46-116) U/L 86 C-Reactive Protein (0.0-0.3) mg/dL 17.46 H Total Protein (6.4-8.2) g/dL 7.2 Albumin (3.4-5.0) g/dL 2.8 L Urine Color (Yellow) Urine Clarity (Clear) Urine pH (5-8) Ur Specific [place] (1.005-1.025) Urine Protein (Negative) mg/dL Urine Ketones (Negative) mg/dL Urine Blood (Negative) Urine Nitrite (Negative) Urine Bilirubin (Negative) Urine Urobilinogen (Up TO 0.2) EU/dL Ur Leukocyte Esterase (Negative) Urine RBC (0-2) HPF Urine WBC (0-5) HPF Ur Epithelial Cells (Negative) HPF Urine Crystals Urine Bacteria (Negative) HPF Urine Mucus Ur Culture Indicated? Urine Glucose (Negative) mg/dL COVID-19 Source SARS-CoV-2 (PCR) (Negative) Influenza Type A (PCR) (Negative) Influenza Type B (PCR) (Negative) RSV (PCR) (Negative) Range/Units 10/28/21 10/28/21 10/28/21 19:20 19:20 19:50 WBC (4.4-10.8) 10^3/uL RBC (3.93-5.22) 10^6/uL Hgb (11.2-15.7) g/dL Hct (36.0-46.0) % MCV (80-95) fL MCH (27.0-33.0) pg MCHC (32.0-36.0) % RDW (11.7-14.6) % Plt Count (130-400) 10^3/uL MPV (8.0-11.0) fL Immature Gran % Neutrophils % Lymphocytes % Monocytes % Eosinophils % Basophils % Nucleated RBC % (0.0-0.3) % Absolute Neutrophils (1.2-6.7) 10^3/uL Absolute Lymphocytes (1.2-3.4) 10^3/uL Absolute Monocytes (0.1-0.8) 10^3/uL Absolute Eosinophils (0.0-0.7) 10^3/uL Absolute Basophils (0.0-0.2) 10^3/uL ESR (0-30) mm/hr 50 H PT (9.3-11.0) sec 10.9 INR (0.9-1.1) 1.1 VBG Lactate (0.6-1.4) mmol/L Sodium (136-145) mmol/L Potassium (3.5-5.1) mmol/L Chloride (98-107) mmol/L Carbon Dioxide (21.0-32.0) mmol/L Anion Gap (3-11) mmol/L BUN (7-18) mg/dL Creatinine (0.55-1.02) mg/dL Estimated GFR/1.73 m2 (mL/min/1.73m2) Glucose (74-106) mg/dL Calcium (8.5-10.1) mg/dL Total Bilirubin (0.2-1.0) mg/dL AST (15-37) U/L ALT (14-59) U/L Alkaline Phosphatase (46-116) U/L C-Reactive Protein (0.0-0.3) mg/dL Total Protein (6.4-8.2) g/dL Albumin (3.4-5.0) g/dL Urine Color (Yellow) Urine Clarity (Clear) Urine pH (5-8) Ur Specific [place] (1.005-1.025) Urine Protein (Negative) mg/dL Urine Ketones (Negative) mg/dL Urine Blood (Negative) Urine Nitrite (Negative) Urine Bilirubin (Negative) Urine Urobilinogen (Up TO 0.2) EU/dL Ur Leukocyte Esterase (Negative) Urine RBC (0-2) HPF Urine WBC (0-5) HPF Ur Epithelial Cells (Negative) HPF Urine Crystals Urine Bacteria (Negative) HPF Urine Mucus Ur Culture Indicated? Urine Glucose (Negative) mg/dL COVID-19 Source Not Applicable SARS-CoV-2 (PCR) (Negative) Negative Influenza Type A (PCR) (Negative) Negative Influenza Type B (PCR) (Negative) Negative RSV (PCR) (Negative) Negative Range/Units 10/28/21 20:55 WBC (4.4-10.8) 10^3/uL RBC (3.93-5.22) 10^6/uL Hgb (11.2-15.7) g/dL Hct (36.0-46.0) % MCV (80-95) fL MCH (27.0-33.0) pg MCHC (32.0-36.0) % RDW (11.7-14.6) % Plt Count (130-400) 10^3/uL MPV (8.0-11.0) fL Immature Gran % Neutrophils % Lymphocytes % Monocytes % Eosinophils % Basophils % Nucleated RBC % (0.0-0.3) % Absolute Neutrophils (1.2-6.7) 10^3/uL Absolute Lymphocytes (1.2-3.4) 10^3/uL Absolute Monocytes (0.1-0.8) 10^3/uL Absolute Eosinophils (0.0-0.7) 10^3/uL Absolute Basophils (0.0-0.2) 10^3/uL ESR (0-30) mm/hr PT (9.3-11.0) sec INR (0.9-1.1) VBG Lactate (0.6-1.4) mmol/L Sodium (136-145) mmol/L Potassium (3.5-5.1) mmol/L Chloride (98-107) mmol/L Carbon Dioxide (21.0-32.0) mmol/L Anion Gap (3-11) mmol/L BUN (7-18) mg/dL Creatinine (0.55-1.02) mg/dL Estimated GFR/1.73 m2 (mL/min/1.73m2) Glucose (74-106) mg/dL Calcium (8.5-10.1) mg/dL Total Bilirubin (0.2-1.0) mg/dL AST (15-37) U/L ALT (14-59) U/L Alkaline Phosphatase (46-116) U/L C-Reactive Protein (0.0-0.3) mg/dL Total Protein (6.4-8.2) g/dL Albumin (3.4-5.0) g/dL Urine Color (Yellow) Yellow Urine Clarity (Clear) Cloudy Urine pH (5-8) 6.5 Ur Specific [place] (1.005-1.025) 1.020 Urine Protein (Negative) mg/dL 100 H Urine Ketones (Negative) mg/dL 40 H Urine Blood (Negative) Moderate H Urine Nitrite (Negative) Positive H Urine Bilirubin (Negative) Negative Urine Urobilinogen (Up TO 0.2) EU/dL 0.2 Ur Leukocyte Esterase (Negative) Large H Urine RBC (0-2) HPF Urine WBC (0-5) HPF >50 H Ur Epithelial Cells (Negative) HPF Urine Crystals Not Applicable Urine Bacteria (Negative) HPF Urine Mucus Not Applicable Ur Culture Indicated? Yes Urine Glucose (Negative) mg/dL Negative COVID-19 Source SARS-CoV-2 (PCR) (Negative) Influenza Type A (PCR) (Negative) Influenza Type B (PCR) (Negative) RSV (PCR) (Negative)
[2021-10-28] MEDS: Sulfameth/Trimeth DS TAB 1 TAB PO (21:57)
[2021-11-01 22:58] LABS: Anaplasma phagocytophilum Negative (Negative); B. miyamotoi PCR Negative (Negative); Babesia divergens/MO-1 Negative (Negative); Babesia duncani Negative (Negative); Babesia microti Negative (Negative); Ehrlichia chaffeensis Negative (Negative); Ehrlichia ewingii/canis Negative (Negative); Ehrlichia muris eauclairensis Negative (Negative)
== END 2021-10-28 22:36 | disposition home or self-care (01) ==
PROVIDERS: Emergency Provider Physician Assistant; PCP Family Medicine
DX: N39.0 Urinary tract infection, site not specified (principal); I10 Essential (primary) hypertension; E11.9 Type 2 diabetes mellitus without complications; R79.82 Elevated C-reactive protein (CRP); Z79.4 Long term (current) use of insulin; Z79.84 Long term (current) use of oral hypoglycemic drugs; Z20.822 Contact with and (suspected) exposure to COVID-19; Z87.891 Personal history of nicotine dependence
CPT/HCPCS: 36415; 80053; 85652; 87040; 87077; 87637; 87798; 96361; 96374; 99284; 71045; 81003; 81015; 83605; 85025; 85610; 86140; 87086; 87186; J2405

== ENCOUNTER 2022-01-27 16:17 | Outpatient (REF) | payer BC, SELFPAY ==
[2022-01-27 21:39] LABS: Abs Immature Grans 0.01 10^3/uL (0.0-0.06); Absolute Basophil Count 0.03 10^3/uL (0.0-0.2); Absolute Eosinophil Count 0.05 10^3/uL (0.0-0.7); Absolute Lymphocyte Count 1.35 10^3/uL (1.2-3.4); Absolute Monocyte Count 0.42 10^3/uL (0.1-0.8); Absolute Neutrophil Count 2.51 10^3/uL (1.2-6.7); Basophils % 0.7; Eosinophils % 1.1; HCT 35.4 % (36.0-46.0); HGB 11.1 g/dL (11.2-15.7); Immature Grans % 0.2; Lymphocytes % 30.9; MCH 27.7 pg (27.0-33.0); MCHC 31.4 % (32.0-36.0); MCV 88 fL (80-95); MPV 11.6 fL (8.0-11.0); Monocytes % 9.6; Neutrophils % 57.5; Platelet Count 254 10^3/uL (130-400); RBC 4.01 10^6/uL (3.93-5.22); RDW 14.7 % (11.7-14.6); RDW-SD 47.3 fL; WBC 4.37 10^3/uL (4.4-10.8)
[2022-01-27 22:35] LABS: ALT 16 U/L (14-59); AST 13 U/L (15-37); Albumin 3.7 g/dL (3.4-5.0); Alkaline Phosphatase 83 U/L (46-116); Anion Gap 7.9 mmol/L (3-11); BUN 26 mg/dL (7-18); Bilirubin, Total 0.2 mg/dL (0.2-1.0); CO2 28.1 mmol/L (21.0-32.0); CREATININE 1.1 mg/dL (0.55-1.02); Calcium 9.4 mg/dL (8.5-10.1); Chloride 101 mmol/L (98-107); Estimated GFR 57.88 (mL/min/1.73m2); Glucose 159 mg/dL (74-106); Potassium 4.1 mmol/L (3.5-5.1); Sodium 137 mmol/L (136-145); TSH 1.41 uIU/mL (0.36-3.74); Total Protein 7.2 g/dL (6.4-8.2); Vitamin B12 486 pg/mL (193-986)
== END 2022-01-27 16:18 | disposition home or self-care (01) ==
LOC: LBN 16:17
PROVIDERS: PCP Family Medicine; Visit Provider Nurse Practitioner Family
DX: R20.2 Paresthesia of skin (principal)
CPT/HCPCS: 80053; 82607; 84443; 85025

== ENCOUNTER 2022-02-14 12:01 | Outpatient (REF) | payer BC, SELFPAY ==
--- NOTE | 2022-02-14 11:30 | PAPFT_PTH ---
PATIENT: Christy Olson LOC: [facility]#:[id number] AGE/SX: 57/F ROOM: RE02/14/[address]: Deepthi Lopez : 1965 BED: DIS: 02/14/2022 [id number] #: [id number] RECD: 02/17/22 12:52 STATUS: AMINA REPaco #: [id number] AMILCAR: 02/14/22 11:[address]: Deepthi Lopez DEPT: [facility] Cytology RECD BY: Cici Aguilar Tissues: 1 - CX/ENDOCX FOR PAP SMEARS Procedures: PAP THIN PREP/UVM Screening HPV DNA PROBE Comments: [id number]
[2022-02-14 16:01] LABS: Calculated LDL 108 mg/dL (<100); Cholesterol 198 mg/dL (<200); HDL Cholesterol 77 mg/dL (40-60); Triglyceride 68 mg/dL (<150)
[2022-02-14 16:08] LABS: Folate > 20.0 ng/mL (8.6-20.0)
== END 2022-02-14 12:02 | disposition home or self-care (01) ==
LOC: NCHCN 12:01
PROVIDERS: PCP Family Medicine; Visit Provider Family Medicine
DX: R20.2 Paresthesia of skin (principal); Z00.00 Encounter for general adult medical examination without abnormal findings; Z12.4 Encounter for screening for malignant neoplasm of cervix; Z11.51 Encounter for screening for human papillomavirus (HPV)
CPT/HCPCS: 80061; 88142; 82746; 87624

== ENCOUNTER 2022-06-27 00:11 | Outpatient (CLI) | payer BC, SELFPAY ==
--- NOTE | 2022-06-27 | DI.MAMMO_ITS ---
Exam(s) MAMMO SCREENING EXAM: MAMMO SCREENING CLINICAL HISTORY: SCREENING, Z12.31. TECHNIQUE: Bilateral full field digital CC and MLO mammographic images were obtained with 3D tomosyn thesis and utilizing computer aided detection (CAD). COMPARISON: Prior mammograms dating back to 2014 were reviewed. FINDINGS: There has been no significant change in the appearance and distribution of the fibroglandular tissue. There are no new spiculated masses nor malignant appearing microcalcification groups. Numerous benign-appearing micro calcifications again noted in both breasts. There is no significant architectural distortion nor skin thickening-retraction. IMPRESSION: No radiographic evidence of malignancy. BI-RADS Category 1 - Negative Breast Density - Category B - Scattered areas of fibroglandular density Breast density Category C or D implies that the patient has dense breast tissue. Dense breast tissue can make it harder to find cancer on a mammogram. Dense breast tissue is also associated with an incr eased risk of breast cancer. This information about the result of the mammogram report was provided to the patient to raise their awareness. Use this report when you speak with the patient about their risks for breast cancer, which includes their family history. At that time, you may recommend additional screening tests (Ultrasoun d or MRI) as these tests may add significant information. A negative radiographic report should not delay biopsy if a dominant or clinically suspicious mass is present. Up to ten percent of cancers are not identified on mammography. A negative report may reinforce clinical impression. Adenosis and dense breasts may obscure an underlying neoplasm. False positive reports average 6 to 10%. Patient will receive a letter notifying them of these results.
== END 2022-06-27 00:31 ==
LOC: DI 00:11
PROVIDERS: PCP Family Medicine; Visit Provider Family Medicine
DX: Z12.31 Encounter for screening mammogram for malignant neoplasm of breast (principal)
CPT/HCPCS: 77063; 77067

== ENCOUNTER 2022-08-15 13:44 | Outpatient (REF) | payer BC, SELFPAY ==
[2022-08-15 15:28] LABS: HCT 34.8 % (36.0-46.0); HGB 11.4 g/dL (11.2-15.7); MCH 29.2 pg (27.0-33.0); MCHC 32.8 % (32.0-36.0); MCV 89 fL (80-95); MPV 11.4 fL (8.0-11.0); Platelet Count 254 10^3/uL (130-400); RDW 15.4 % (11.7-14.6); RDW-SD 50.4 fL; WBC 5.43 10^3/uL (4.4-10.8)
[2022-08-15 16:16] LABS: ALT 20 U/L (14-59); AST 16 U/L (15-37); Albumin 3.6 g/dL (3.4-5.0); Alkaline Phosphatase 90 U/L (46-116); Anion Gap 9.5 mmol/L (3-11); BUN 24 mg/dL (7-18); Bilirubin, Total 0.4 mg/dL (0.2-1.0); CO2 24.5 mmol/L (21.0-32.0); Calcium 10.6 mg/dL (8.5-10.1); Chloride 106 mmol/L (98-107); Glucose 259 mg/dL (74-106); Sodium 140 mmol/L (136-145); Total Protein 6.8 g/dL (6.4-8.2)
== END 2022-08-15 13:45 | disposition home or self-care (01) ==
LOC: NCHCN 13:44
PROVIDERS: PCP Family Medicine; Visit Provider Family Medicine
DX: I10 Essential (primary) hypertension (principal); E11.9 Type 2 diabetes mellitus without complications; Z51.81 Encounter for therapeutic drug level monitoring
CPT/HCPCS: 80053; 85027

== ENCOUNTER 2022-09-03 06:00 | Day surgery (SDC) | payer BC, SELFPAY ==
[2022-09-03 06:22] VITALS: BP 146/55; PULSE 65; RESP 18; TEMP 36.5; O2SAT 98
--- NOTE | 2022-09-03 07:13 | PDOC.DSDIS_ITS ---
Date of service: 09/03/22 Time of Service: 07:14 Discharge Plan Disposition Patient Disposition: Home Condition: Good Discharge Details Reason For Visit: RRF Trigger release Attending Provider: Theron Mccollum Primary Care Provider: Deepthi Lopez Home Meds and New Rx's Prescriptions: New acetaminophen 500 mg tablet 1,000 mg PO TID Qty: 90 0RF ibuprofen 600 mg tablet 600 mg PO TID PRN (Reason: pain) Qty: 90 0RF Continued bupropion HCl 150 mg tablet sustained-release 12 hr 150 mg PO BID folic acid 1 mg tablet 2 mg PO DAILY Jardiance 10 mg tablet 10 mg PO DAILY lansoprazole [Prevacid] 30 mg capsule,delayed release(DR/EC) 30 mg PO DAILY amlodipine 5 mg tablet 5 mg PO DAILY atorvastatin 20 mg tablet 20 mg PO DAILY furosemide [Lasix] 20 mg tablet 20 mg PO DAILY cyanocobalamin (vitamin B-12) 1,000 mcg capsule 1,000 mcg PO DAILY Glucagon Emergency Kit (human) 1 mg recon soln 1 mg subcut Q20M PRN Rx Instructions: until target blood sugar attained cyclobenzaprine 5 mg tablet 5 mg PO TID PRN naltrexone 50 mg tablet 50 mg PO DAILY atenolol 25 mg tablet 25 mg PO DAILY methotrexate sodium 2.5 mg tablet 17.5 mg PO QWEEK lisinopril 40 MG tablet 40 mg PO DAILY insulin lispro [Humalog KwikPen Insulin] 300 UNITS/3 ML insulin pen 10 - 15 units Sub-Q AC Patient Comments: SLIDING SCALE/CHO insulin glargine [Lantus Solostar U-100 Insulin] 100 unit/mL (3 mL) insulin pen See Rx Instructions .ROUTE .COMPLEX Rx Instructions: Take 38 units SQ in the AM and 10-12 units at HS Discharge Instructions Stand Alone Forms: Veda Maddox Finger Release Referrals: Theron Mccollum MD [ [facility] STAFF PHYSICIAN] - Activity:: Activity as Tolerated Remove Dressings/Wound Care:: 48 hours Shower/Bathe:: 48 hours Diet:: As Tolerated Discharge Orders Discharge Orders: Discharge Order (Routine); Ordered 09/03/22 Ordered By: Zacarias Alvarez DS: Diagnosis Discharge Diagnosis (1) Trigger finger, right ring finger: Status: Acute
[2022-09-03] MEDS: Sodium Bicarbonate 50 MEQ/50 ML VIAL (07:46)
[2022-09-03] MEDS: Lidocaine 1% Pres-Free W/EPI 1/200,000 30 ML VIAL (07:46)
[2022-09-03 08:09] VITALS: BP 144/57; PULSE 71; RESP 18; TEMP 36.4; O2SAT 98
--- NOTE | 2022-09-03 17:21 | ROE_ITS ---
Date of service: 09/03/22 Time of Service: 08:00 Operative Note Operative Note DATE OF PROCEDURE: 09/03/22 PRE-OP DIAGNOSIS: Right ring finger and middle finger trigger fingers POST-OP DIAGNOSIS: same PROCEDURE: Trigger Finger Release -right ring and middle finger SURGEON: Theron Mccollum ANESTHESIA TYPE: Local By Surgeon Refer to Anesthesia Record ESTIMATED BLOOD LOSS: 5 PATHOLOGY: none sent TOURNIQUET TIME: 0 COMPLICATIONS: None Patient was transported to: same day Patient's condition: stable Indications: I have seen Christy in clinic for symptoms of a trigger finger. The catching, clicking, locking, and pain limited function. The diagnosis of trigger finger was evident. The symptoms had not responded to conservative measures. I discussed trigger finger release with the patient. I reviewed the risks of the procedure to include, but not limited to, bleeding, infection, pain, stiffness, incomplete release, damage to nerves or vessels, continued catching, recurrence. Despite these risks, the patient elected to proceed. Findings: There was a tightened A1 bandar which was released. The flexor tendons were inspected and the patient was able to move the finger without any catching, clicking, or locking. Procedure Description: Christy was greeted in the preoperative holding area where the correct side was identified and marked. The consent was reviewed with the patient and signed. All questions were answered. She was taken back to the operating room. The patient was placed into the supine position on the operating room table with the right arm on an arm board. All bony prominences were well padded. No prophylactic antibiotics were administered since this was a clean, elective hand surgical case. The right arm was then prepped with Chloraprep and draped in a standard fashion with [facility] kinette and extremity drape. A timeout to confirm correct identity, side and site, procedure, allergies, anesthesia, and medical concerns was performed. The surgical site was marked as a longitudinal incision directly over the A1 bandar of the involved digits, middle and ring finger. This was confirmed with palpation during finger flexion. This area, overlying the metacarpal head, was then anesthetized with 1% Lidocaine with epinephrine, buffered with sodium bicarbonate, for both fingers. The patient tolerated this well and once the anesthetic had setup, the procedure began. Starting with the middle finger, A longitudinal incision was made through skin only, approximately 1cm. The deep tissues were dissected bluntly. Once the A1 bandar and flexor tendons were identified the soft tissue including neurovascular structures were retracted medially and laterally. There were no crossing structures over the A1 bandar. The proximal edge of the bandar was identified and the bandar was incised with tenotomy scissors. There was a release of the tendons once this was fully released. The tendons were then removed from the wound and inspected. Excess synovium was resected. The tendons were then returned and the patient was asked to move the finger into deep flexion and back to extension. There was no recreation of the pre- operative symptoms. The hand was then once more inspected for any A0 bandar or area of possible constriction. Attention was then turned to the ring finger. Similarly, a longitudinal incision was made through the skin, approxi-1 cm. The deep tissues were dissected bluntly. The A1 bandar was identified. It was then incised with a tenotomy scissor. There were no crossing structures seen prior to cutting the A1 bandar. The tendons were then removed from the wound and inspected. There is no signs of tendon tearing. There is some mild synovitis. I then had the patient move her finger through range of motion and there is no notable brett ering or locking. The wounds were then irrigated and the skin was closed with a 4-0 Nylon. This was dressed with Xeroform, gauze and a Conform dressing. The patient tolerated the procedure well and was returned to the Same Day Surgery area in a stable condition suffering no known complication.
== END 2022-09-03 08:30 | disposition home or self-care (01) ==
PROVIDERS: PCP Family Medicine; Visit Provider Student in an Organized Health Care Education/Training Program
PROC: (CPT 26055; principal; 2022-09-03 07:30)
DX: M65.341 Trigger finger, right ring finger (principal); E11.9 Type 2 diabetes mellitus without complications; G47.33 Obstructive sleep apnea (adult) (pediatric); M65.331 Trigger finger, right middle finger
CPT/HCPCS: 26055 ×2

== ENCOUNTER 2022-11-07 13:00 | Outpatient (REF) | payer BC, SELFPAY ==
[2022-11-07 14:17] LABS: COMMENT (LAB VIEW ONLY) 47.94 mg/dL; Microalb ug/mg Crea 76.8 ug/mg Cr
== END 2022-11-07 13:01 | disposition home or self-care (01) ==
LOC: NCHCN 13:00
PROVIDERS: PCP Family Medicine; Visit Provider Family Medicine
DX: E11.9 Type 2 diabetes mellitus without complications (principal)
CPT/HCPCS: 82043; 82570

== ENCOUNTER 2022-11-17 15:01 | Outpatient (REF) | payer BC, SELFPAY ==
[2022-11-17 15:04] LABS: HCT 36.5 % (36.0-46.0); HGB 11.7 g/dL (11.2-15.7); MCH 28.5 pg (27.0-33.0); MCHC 32.1 % (32.0-36.0); MCV 89 fL (80-95); MPV 12.2 fL (8.0-11.0); Platelet Count 251 10^3/uL (130-400); RDW 14.6 % (11.7-14.6); RDW-SD 46.5 fL; WBC 6.32 10^3/uL (4.4-10.8)
[2022-11-17 15:57] LABS: ALT 15 U/L (14-59); AST 15 U/L (15-37); Albumin 3.5 g/dL (3.4-5.0); Alkaline Phosphatase 85 U/L (46-116); Anion Gap 9.2 mmol/L (3-11); BUN 24 mg/dL (7-18); Bilirubin, Total 0.4 mg/dL (0.2-1.0); CO2 25.8 mmol/L (21.0-32.0); Calcium 9.3 mg/dL (8.5-10.1); Chloride 105 mmol/L (98-107); Glucose 186 mg/dL (74-106); Sodium 140 mmol/L (136-145)
== END 2022-11-17 15:02 | disposition home or self-care (01) ==
LOC: NCHCN 15:01
PROVIDERS: PCP Family Medicine; Visit Provider Family Medicine
DX: I10 Essential (primary) hypertension (principal); Z51.81 Encounter for therapeutic drug level monitoring
CPT/HCPCS: 80053; 85027

== ENCOUNTER 2022-12-23 10:17 | Day surgery (SDC) | payer BC, SELFPAY ==
--- NOTE | 2022-12-23 10:15 | W.PM.DSUDISC ---
Date of service: 12/23/22 Time of Service: 12:32 Discharge Plan Disposition Patient Disposition: Home Condition: Good Discharge Details Reason For Visit: Right trigger thumb Attending Provider: Theron Mccollum Primary Care Provider: Deepthi Lopez Home Meds and New Rx's Prescriptions: Continued Rybelsus 3 mg tablet 3 mg PO DAILY Toujaguar SoloStar U-300 Insulin 300 unit/mL (1.5 mL) insulin pen 47 unit subcut DAILY Jardiance 25 mg tablet 25 mg PO DAILY omeprazole 40 mg capsule,delayed release(DR/EC) 40 mg PO DAILY topiramate 50 mg tablet 50 mg PO BID phentermine 15 mg capsule 15 mg PO DAILY Rx Instructions: must administer 2 hours after breakfast bupropion HCl 150 mg tablet sustained-release 12 hr 150 mg PO BID folic acid 1 mg tablet 2 mg PO DAILY amlodipine 5 mg tablet 5 mg PO DAILY atorvastatin 20 mg tablet 20 mg PO DAILY furosemide [Lasix] 20 mg tablet 20 mg PO DAILY cyanocobalamin (vitamin B-12) 1,000 mcg capsule 1,000 mcg PO DAILY Glucagon Emergency Kit (human) 1 mg recon soln 1 mg subcut Q20M PRN Rx Instructions: until target blood sugar attained cyclobenzaprine 5 mg tablet 5 mg PO TID PRN atenolol 25 mg tablet 25 mg PO DAILY methotrexate sodium 2.5 mg tablet 17.5 mg PO QWEEK lisinopril 40 MG tablet 40 mg PO DAILY insulin lispro [Humalog KwikPen Insulin] 300 UNITS/3 ML insulin pen 10 - 15 units Sub-Q AC Patient Comments: SLIDING SCALE/CHO acetaminophen 500 mg tablet 1,000 mg PO TID Qty: 90 0RF ibuprofen 600 mg tablet 600 mg PO TID PRN (Reason: pain) Qty: 90 0RF Discharge Instructions Stand Alone Forms: Veda Frye, Santiago Cortes (DSU) Activity:: Elevate Remove Dressings/Wound Care:: 48 hours Shower/Bathe:: 48 hours Diet:: As Tolerated Discharge Orders Discharge Orders: Discharge Order (Routine); Ordered 12/23/22 Ordered By: Thania Quintero
[2022-12-23 10:56] VITALS: BP 148/67; PULSE 75; RESP 16; TEMP 36.7; O2SAT 98
[2022-12-23] MEDS: Lidocaine 1.5 % Pres-Free W/EPI 1/200,000 30 ML VIAL (12:17)
[2022-12-23] MEDS: Sodium Bicarbonate 50 MEQ/50 ML VIAL (12:18)
[2022-12-23 12:41] VITALS: BP 156/68; PULSE 78; RESP 18; TEMP 36.4; O2SAT 98
--- NOTE | 2022-12-23 13:18 | ROE_ITS ---
Date of service: 12/23/22 Time of Service: 12:30 Operative Note Operative Note DATE OF PROCEDURE: 12/23/22 PRE-OP DIAGNOSIS: Right Trigger Thumb POST-OP DIAGNOSIS: same PROCEDURE: Trigger Finger Release - Right Thumb SURGEON: Theron Mccollum ANESTHESIA TYPE: Local By Surgeon Refer to Anesthesia Record ESTIMATED BLOOD LOSS: 5 PATHOLOGY: none sent COMPLICATIONS: None Patient was transported to: same day Patient's condition: stable Indications: I have seen Christy in clinic for symptoms of a trigger thumb. The catching, clicking, locking, and pain limited function. The diagnosis of trigger finger was evident. The symptoms had not responded to conservative measures. She had had previously released trigger fingers with good success. I discussed trigger finger release with the patient. I reviewed the risks of the procedure to include, but not limited to, bleeding, infection, pain, stiffness, incomplete release, damage to nerves or vessels, continued catching, recurrence. Despite these risks, the patient elected to proceed. Findings: There was a tightened A1 bandar which was released. The flexor tendons were inspected and the patient was able to move the finger without any catching, clicking, or locking. Procedure Description: Christy was greeted in the preoperative holding area where the correct side was identified and marked. The consent was reviewed with the patient and signed. All questions were answered. She was taken back to the operating room. The patient was placed into the supine position on the operating room table with the right arm on an arm board. All bony prominences were well padded. No prophylactic antibiotics were administered since this was a clean, elective hand surgical case. The right arm was then prepped with Chloraprep and draped in a standard fashion with stockinette and extremity drape. A timeout to confirm correct identity, side and site, procedure, allergies, anesthesia, and medical concerns was performed. The surgical site was marked as a longitudinal incision directly over the A1 bandar of the involved digit. This was confirmed with palpation during finger flexion. This area, overlying the metacarpal head, was then anesthetized with 1% Lidocaine. The patient tolerated this well and once the anesthetic had setup, the procedure began. A longitudinal incision was made through skin only, approximately 1cm. The deep tissues were dissected bluntly. Once the A1 bandar and flexor tendons were identified the soft tissue including neurovascular structures were retracted medially and laterally. The digital nerve was apparent over the medial border of the flexor tendon and was retracted. There were no crossing structures over the A1 bandar. The proximal edge of the bandar was identified and the bandar was incised with tenotomy scissors. There was a release of the tendons once this was fully released. The tendons were then removed from the wound and inspected. Excess synovium was resected. The tendons were then returned and the patient was asked to move the finger into deep flexion and back to extension. There was no recreation of the pre- operative symptoms. The hand was then once more inspected for any A0 bandar or area of possible constriction. The wound was then irrigated and the skin was closed with a 4-0 Nylon. This was dressed with gauze and a Conform dressing. The patient tolerated the procedure well and was returned to the Same Day Surgery area in a stable condition suffering no known complication.
== END 2022-12-23 13:07 | disposition home or self-care (01) ==
LOC: SUR 10:17
PROVIDERS: PCP Family Medicine; Visit Provider Student in an Organized Health Care Education/Training Program
PROC: (CPT 26055; principal; 2022-12-23 13:30)
DX: M65.311 Trigger thumb, right thumb (principal); I10 Essential (primary) hypertension
CPT/HCPCS: 26055; 00123

== ENCOUNTER 2023-04-22 16:25 | Outpatient (REF) | payer BC, SELFPAY | END 2023-04-22 16:26 | disposition home or self-care (01) | LOC: NCHCN 16:25 | PROVIDERS: PCP Family Medicine; Visit Provider Family Medicine | DX: E11.9 Type 2 diabetes mellitus without complications (principal) | CPT/HCPCS: 83036 ==

== ENCOUNTER → 2023-07-27 04:55 | Outpatient (CLI) | payer BC, SELFPAY ==
--- NOTE | 2023-07-27 | DI.MAMMO_ITS ---
Exam(s) MAMMO SCREENING EXAM: MAMMO SCREENING CLINICAL HISTORY: SCREENING, Z12.31. TECHNIQUE: Bilateral full field digital CC and MLO mammographic images were obtained with 3D tomosyn thesis and utilizing computer aided detection (CAD). COMPARISON: Prior mammograms were reviewed. FINDINGS: There has been no significant change in the appearance and distribution of the fibroglandular tissue. Asymmetric density with calcifications in the right breast remains relatively stable There are no new spiculated masses nor new malignant appearing microcalcification groups. There is no significant architectural distortion nor skin thickening-retraction. IMPRESSION: No radiographic evidence of malignancy. BI-RADS Category 2 - Benign Findings Breast Density - Category B - Scattered areas of fibroglandular density Breast density Category C or D implies that the patient has dense breast tissue. Dense breast tissue can make it harder to find cancer on a mammogram. Dense breast tissue is also associated with an incr eased risk of breast cancer. This information about the result of the mammogram report was provided to the patient to raise their awareness. Use this report when you speak with the patient about their risks for breast cancer, which includes their family history. At that time, you may recommend additional screening tests (Ultrasoun d or MRI) as these tests may add significant information. A negative radiographic report should not delay biopsy if a dominant or clinically suspicious mass is present. Up to ten percent of cancers are not identified on mammography. A negative report may reinforce clinical impression. Adenosis and dense breasts may obscure an underlying neoplasm. False positive reports average 6 to 10%. Patient will receive a letter notifying them of these results.
== END ==
PROVIDERS: PCP Family Medicine; Visit Provider Family Medicine
DX: Z12.31 Encounter for screening mammogram for malignant neoplasm of breast (principal)
CPT/HCPCS: 77063; 77067

== ENCOUNTER 2023-08-21 06:14 | Day surgery (SDC) | payer BC, SELFPAY ==
[2023-08-21 06:25] VITALS: BP 167/71; PULSE 70; RESP 18; TEMP 36; O2SAT 100
--- NOTE | 2023-08-21 07:14 | W.PM.DSUDISC ---
Date of service: 08/21/23 Time of Service: 09:00 Discharge Plan Disposition Patient Disposition: Home Condition: Stable Discharge Details Attending Provider: Faheem Simpson Primary Care Provider: Deepthi Lopez Home Meds and New Rx's Prescriptions: Continued insulin glargine U-300 conc [Toujeo SoloStar U-300 Insulin] 300 unit/mL (1.5 mL) insulin pen 47 unit subcut DAILY Jardiance 25 mg tablet 25 mg PO DAILY omeprazole 40 mg capsule,delayed release(DR/EC) 40 mg PO DAILY topiramate 50 mg tablet 50 mg PO BID phentermine 15 mg capsule 15 mg PO DAILY Rx Instructions: must administer 2 hours after breakfast bupropion HCl 150 mg tablet sustained-release 12 hr 150 mg PO BID folic acid 1 mg tablet 2 mg PO DAILY amlodipine 5 mg tablet 5 mg PO DAILY atorvastatin 20 mg tablet 20 mg PO DAILY furosemide [Lasix] 20 mg tablet 20 mg PO DAILY cyanocobalamin (vitamin B-12) 1,000 mcg capsule 1,000 mcg PO DAILY Glucagon Emergency Kit (human) 1 mg recon soln 1 mg subcut Q20M PRN Rx Instructions: until target blood sugar attained cyclobenzaprine 5 mg tablet 5 mg PO TID PRN atenolol 25 mg tablet 25 mg PO DAILY methotrexate sodium 2.5 mg tablet 17.5 mg PO QWEEK Rybelsus 3 mg tablet 7 mg PO DAILY lisinopril 40 MG tablet 40 mg PO DAILY insulin lispro [Humalog KwikPen Insulin] 300 UNITS/3 ML insulin pen 10 - 15 units Sub-Q AC Patient Comments: SLIDING SCALE/CHO acetaminophen 500 mg tablet 1,000 mg PO TID Qty: 90 0RF ibuprofen 600 mg tablet 600 mg PO TID PRN (Reason: pain) Qty: 90 0RF Discharge Instructions Additional Instructions: Surgery: Left ring and middle finger trigger releases Activity: Protect hand for a few weeks. Gently increase finger motion and hand gripping to prevent stiffness. Recommend elevation to minimize swelling and discomfort. A hand therapy prescription will be provided on follow-up if needed. Prescriptions: None Resume home medicines, use [id number] Tylenol (acetaminophen) as needed for mild pain and ibuprofen (Motrin) or naproxen (Aleve) as needed for moderate to severe pain and swelling. Dressings: Leave dressing in place for 3 days. May then remove and leave open to air or cover incision with Band-Aid. May get wet after 5 days. Follow-up: 10-[address] Simpson Please call the office during business hours with any questions or concerns. Discharge Orders Discharge Orders: Discharge Order (Routine); Ordered 08/21/23 Ordered By: Faheem Simpson DS: Diagnosis Discharge Diagnosis (1) Trigger finger, left middle finger: Status: Acute (2) Trigger finger, left ring finger: Status: Acute
--- NOTE | 2023-08-21 07:20 | W.PM.OP ---
Date of service: 08/21/23 Time of Service: 08:30 Operative Note Operative Note DATE OF PROCEDURE: 08/21/23 PRE-OP DIAGNOSIS: Left ring and middle trigger fingers PROCEDURE: 1. Left ring finger trigger release, CPT# 67684 1. Left middle finger trigger release, CPT# 65585 SURGEON: Faheem Simpson CUSTOMER SUCCESS SPECIALIST: None None ANESTHESIA TYPE: Local By Surgeon Refer to Anesthesia Record ESTIMATED BLOOD LOSS: 2 TOURNIQUET TIME: 0 COMPLICATIONS: None Patient was transported to: same day Patient's condition: stable Indications: Please see complete medical record for details. Findings: Limited range of motion especially flexion left hand index middle ring and small fingers. Notable triggering preventing full flexion of the ring finger and tenderness over the ring and middle finger A1 pulleys. Limited flexion but minimal tenderness small finger. Limited flexion and moderate tenderness index finger without any mechanical locking or catching. Procedure Description: In the operating room, the patient was positioned supine on the stretcher. All bony prominences were padded. Preoperative antibiotics were administered given comorbidities. The correct patient, procedure, and side of the procedure were all verified prior to beginning. Local anesthesia was induced about the site with 10cc of 1% lidocaine containing epinephrine buffered with 1 cc of sodium bicarbonate. The Left hand was prepped and draped in the usual sterile fashion. Proper analgesia was confirmed. A small volar longitudinal approach was made overlying the middle finger MCP joint. Soft tissues were swept to the sides and retracted to expose the A1 bandar. The release was started centrally with a knife and completed at the proximal and distal margins with tenotomy scissors. Care was taken to protect the flexor tendons. The tendons were inspected and showed mild tenosynovitis, which was treated, but otherwise intact. Appropriate flexor tendon excursion was confirmed. The patient readily demonstrated almost full range of motion of the finger without triggering. Proper analgesia was confirmed. A small volar longitudinal approach was made overlying the middle finger MCP joint. Soft tissues were swept to the sides and retracted to expose the A1 bandar. There was scarring and adhesions from a possible Dupuytren's overlying and thickening about the bandar from severity of this trigger finger. The release was started centrally with a knife and completed at the proximal and distal margins with tenotomy scissors. Care was taken to protect the flexor tendons. The tendons were inspected and showed minimal bulbous degeneration, no significant tearing. Appropriate flexor tendon excursion was confirmed. The patient readily demonstrated almost full range of motion of the finger without triggering. The small incisions were irrigated and then dried. Hemostasis was appropriate. The incisions were closed using 3-0 nylon in a horizontal mattress fashion. Xeroform was applied followed by gauze and the hand was gently compressed with an Rosalio bandage. The patient tolerated local anesthesia without complication and was transferred out of the operating room in a stable condition.
[2023-08-21] MEDS: Lactated Ringers 500 ML 30 ML IV (07:45)
[2023-08-21] MEDS: ceFAZolin 2 GM/50 ML BAG 100 GM (07:45)
[2023-08-21] MEDS: Sodium Bicarbonate 50 MEQ/50 ML VIAL (07:53)
[2023-08-21] MEDS: Lidocaine 1% Pres-Free W/EPI 1/200,000 10 ML VIAL (07:53)
[2023-08-21] MEDS: ceFAZolin 1 GM/50 ML BAG 100 GM (08:00)
[2023-08-21 08:24] VITALS: BP 188/64; PULSE 73; RESP 18; TEMP 36.1; O2SAT 98
== END 2023-08-21 08:46 | disposition home or self-care (01) ==
PROVIDERS: PCP Family Medicine; Visit Provider Student in an Organized Health Care Education/Training Program
PROC: (CPT 26055; principal; 2023-08-21 07:30)
DX: M65.332 Trigger finger, left middle finger (principal); M65.342 Trigger finger, left ring finger
CPT/HCPCS: 26055 ×2; J0690; J2004

== ENCOUNTER 2023-10-19 23:49 | Outpatient (REF) | payer BC, SELFPAY ==
[2023-10-19 16:04] LABS: HCT 38.2 % (36.0-46.0); HGB 12.1 g/dL (11.2-15.7); MCH 27.9 pg (27.0-33.0); MCHC 31.7 % (32.0-36.0); MCV 88 fL (80-95); MPV 12.3 fL (8.0-11.0); Platelet Count 257 10^3/uL (130-400); RBC 4.34 10^6/uL (3.93-5.22); RDW 14.5 % (11.7-14.6); RDW-SD 46.5 fL; WBC 6.14 10^3/uL (4.4-10.8)
[2023-10-19 17:37] LABS: ALT 25 U/L (14-59); AST 19 U/L (15-37); Albumin 3.6 g/dL (3.4-5.0); Alkaline Phosphatase 97 U/L (46-116); Anion Gap 9.3 mmol/L (3-11); BUN 22 mg/dL (7-18); CO2 25.7 mmol/L (21.0-32.0); CREATININE 1.1 mg/dL (0.55-1.02); Calcium 10.4 mg/dL (8.5-10.1); Chloride 105 mmol/L (98-107); Estimated GFR 57.52 (mL/min/1.73m2); Glucose 299 mg/dL (74-106); Potassium 4.1 mmol/L (3.5-5.1); Sodium 140 mmol/L (136-145); Total Protein 7.2 g/dL (6.4-8.2)
== END 2023-10-19 23:50 | disposition home or self-care (01) ==
LOC: NCHCN 23:49
PROVIDERS: PCP Family Medicine; Visit Provider Family Medicine
DX: D53.1 Other megaloblastic anemias, not elsewhere classified (principal); R60.0 Localized edema
CPT/HCPCS: 80053; 85027

== ENCOUNTER 2023-11-10 14:59 | Emergency (ER) | payer BC, SELFPAY ==
[2023-11-10 15:11] VITALS: BP 139/80; PULSE 73; RESP 14; TEMP 36.9; O2SAT 97
--- NOTE | 2023-11-10 15:40 | ED.GENADUL_ITS ---
Discharge Plan Disposition Patient Disposition: Home Condition: Stable Discharge Details Clinical Impression: Pain and swelling of lower leg, Hypertension, benign Primary Care Provider: Deepthi Lopez ED Provider: Veronica Olmstead Home Meds and New Rx's Prescriptions: No Action topiramate 50 mg tablet 50 mg PO BID (DME) Dexcom G7 Sensor Device See Rx Instructions .Route Rx Instructions: As directed pantoprazole 40 mg tablet,delayed release (DR/EC) 40 mg PO DAILY bupropion HCl 150 mg tablet sustained-release 12 hr 150 mg PO BID folic acid 1 mg tablet 2 mg PO DAILY amlodipine 5 mg tablet 5 mg PO DAILY atorvastatin 20 mg tablet 20 mg PO DAILY cyanocobalamin (vitamin B-12) 1,000 mcg capsule 1,000 mcg PO DAILY cyclobenzaprine 5 mg tablet 5 mg PO TID PRN atenolol 25 mg tablet 25 mg PO DAILY Rybelsus 14 mg tablet 14 mg PO DAILY mecobalamin (vitamin B12) 1,000 mcg tablet,chewable 1,000 mcg PO DAILY furosemide [Lasix] 20 mg tablet 40 mg PO DAILY lisinopril 40 MG tablet 40 mg PO DAILY insulin lispro [Humalog KwikPen Insulin] 300 UNITS/3 ML insulin pen 10 - 15 units Sub-Q AC Patient Comments: SLIDING SCALE/CHO ibuprofen 600 mg tablet 600 mg PO TID PRN (Reason: pain) Qty: 90 0RF Discharge Instructions Instructions: Lymphedema (DC) Additional Instructions: You were seen in the emergency department today for evaluation of leg swelling. In our department you had a full physical examination performed, and I have a much lower concern for cellulitis given your reassuring examination. We did talk about options for diagnostics, which included repeating your ultrasound as well as some basic laboratory studies, which at this time you have declined. This is reasonable, as you are improving with compression and we did provide you with compression socks to be worn whenever you are up and about. Please elevate your legs, maintain good hydration and nutrition, and take all of your medications as prescribed. You should follow-up at your scheduled appointment with Dr. Miramontes in the next few weeks, and thank you for allowing us to be part of your care. HPI General Date/Time Provider Initiated Documentation: 11/10/23 15:20 . Limitations to Documentation: no limitations . Information obtained by: patient, family and old records reviewed . HPI Narrative: MDM: In brief, this is a 58-year-old female patient presenting for evaluation of approximately 1 month of right greater than left lower leg swelling. Differential includes but is not limited to lymphedema, certainly considered DVT given the asymmetrical nature of the swelling, though the patient is without calf tenderness and had a negative ultrasound study per her report within the last few weeks. I considered cellulitis of the patient's examination is without fever, redness, warmth or induration. I considered metabolic and electrolyte derangements, heart failure, kidney and liver disease, thyroid conditions. The patient has not experienced trauma to suggest fracture, and does not have any chronic wounds to suggest osteomyelitis. She has no neurovascular deficits and no evidence of arterial occlusion, phlegmasia, etc. ED Course: We had an extended shared decision-making conversation regarding next [facility] and management. I did provide the patient with a pair of compression stockings and recommended wearing them on both legs, and using elevation to assist with swelling given her noticeable improvement with compression and elevation over the past several weeks. I recommended monitoring for changes in skin, especially if she develops wound, redness, induration, or fluid drainage, and informed her that if she was to develop any of these signs or other signs of infection like fever or chills she needs to return immediately for care. The patient reports that she does not want to repeat her DVT ultrasound today, and additionally declines repeat laboratory studies given her recent laboratory evaluation. We did discuss her elevated inflammatory markers noted on her laboratory studies on 10/28 and the patient is understanding of the potential implications of these labs. I provided the patient with a dose of Tylenol for symptomatic management of pain. At this time, the patient has had a full medical evaluation and is safe for discharge to home. They are hemodynamically stable, ambulatory, and tolerating PO. They are understanding of the follow-up plan and return precautions. They left our facility without incident. Veronica Olmstead MD HPI: This is a 58-year-old female patient with a past medical history significant for diabetes, hypertension, presenting for evaluation of leg swelling. She reports that this has been going on for several weeks, at least a month, and she has been seen by her primary care provider and had a DVT ultrasound performed that was negative. She has been using a knee brace to provide compression and has noticed significant improvement with compression, and states that her symptoms are greatly improved in the morning after her legs up and elevated in bed. She reports that she notes pain along the areas of swelling, most of fall on the right leg and along the front. She has not noted any numbness, tingling, weakness, and has not noted any wounds. Her skin feels dry where it is swollen, she has not noted any fluctuance or fluid drainage. She has tried increasing her home Lasix without improvement in her swelling, and has not noted any fevers or chills. The patient was told to seek care given an outpatient providers concern for cellulitis, though states that this provider that she does not suspect cellulitis given the lack of worsening over the past several weeks. She has not used any antibiotics for this condition. She reports that she is not experiencing any additional symptoms, has been making urine and maintaining her hydration and nutrition normally. Exam: Gen: Awake and alert, in no apparent distress HEENT: Non-icteric sclera Neck: Supple Lungs: No apparent respiratory distress, normal respiratory effort. CV: Appears well perfused, strong distal pulses Abdomen: Non-distended MSK: Moves 4 extremities without apparent limitation in ROM. The patient has right greater than left sided peripheral edema to the proximal berry, with scaly skin appreciated to the distal right lower extremity. She has no calf tenderness, has no induration, warmth, or redness. There is no visualized wounds to the calf or foot, strong DP pulses and full range of motion and sensation of the bilateral feet. Skin: Visualized skin without rashes, cyanosis. Neuro: Normal Gait, no obvious focal deficits or facial asymmetry. Speaks in full, clear sentences. Psych: Appropriate for situation. Related Data Home Medications ?Medication ?Instructions ?Recorded ?Confirmed insulin lispro 100 unit/mL 10 - 15 units subcut AC 09/23/12 11/10/23 subcutaneous pen (Humalog KwikPen (U-100) Insulin) lisinopril 40 mg tablet 40 mg PO DAILY 09/23/12 11/10/23 amlodipine 5 mg tablet 5 mg PO DAILY 01/13/22 11/10/23 atorvastatin 20 mg tablet 20 mg PO DAILY 01/13/22 11/10/23 bupropion HCl 150 mg tablet,12 hr 150 mg PO BID 01/13/22 11/10/23 sustained-release cyanocobalamin (vitamin B-12) 1,000 mcg PO DAILY 01/13/22 11/10/23 1,000 mcg capsule folic acid 1 mg tablet 2 mg PO DAILY 01/13/22 11/10/23 atenolol 25 mg tablet 25 mg PO DAILY 06/03/22 11/10/23 cyclobenzaprine 5 mg tablet 5 mg PO TID PRN 06/03/22 11/10/23 ibuprofen 600 mg tablet 600 mg PO TID PRN pain #90 tabs 09/03/22 11/10/23 topiramate 50 mg tablet 50 mg PO BID 12/11/22 11/10/23 mecobalamin (vitamin B12) 1,000 1,000 mcg PO DAILY 10/20/23 11/10/23 mcg chewable tablet semaglutide 14 mg tablet (Rybelsus) 14 mg PO DAILY 10/20/23 11/10/23 blood-glucose sensor (Dexcom G7 10/22/23 11/10/23 Sensor device) furosemide 20 mg tablet (Lasix) 40 mg PO DAILY 10/22/23 11/10/23 pantoprazole 40 mg tablet,delayed 40 mg PO DAILY 10/23/23 11/10/23 release Previous Rx's ?Medication ?Instructions ?Recorded ibuprofen 600 mg tablet 600 mg PO TID PRN pain #90 tabs 09/03/22 Allergies Allergy/AdvReac Type Severity Reaction Status Date / Time Penicillins AdvReac Intermediate Nausea Verified 11/10/23 15:13 General Stated Complaint: Vascular PRERNA: 3 Course Vital Signs Vital signs: Vital Signs Temperature 36.9 C 11/10/23 15:11 Pulse 73 11/10/23 15:11 Respiratory Rate 14 11/10/23 15:11 Blood Pressure 139/80 11/10/23 15:11 Pulse Oximetry 97 11/10/23 15:11 Temperature 36.9 C 11/10/23 15:11 Temperature Source Skin 11/10/23 15:11 Pulse 73 11/10/23 15:11 Respiratory Rate 14 11/10/23 15:11 Blood Pressure 139/80 11/10/23 15:11 Blood Pressure Position Sitting 11/10/23 15:11 Pulse Oximetry 97 11/10/23 15:11 Oxygen Delivery Method Room Air 11/10/23 15:11 Oxygen Flow Rate 0 11/10/23 15:11 Pain Level 7 11/10/23 15:11 Medical Decision Making Quality:SDOH Health Related Social Needs: No Data to Display PFSH All Active Problems (Updated 11/10/23 @ 15:41 by Veronica Olmstead MD) Pain and swelling of lower leg (Acute) Trigger finger, left middle finger (Acute) Trigger finger, left ring finger (Acute) Dupuytren's disease of palm of left hand (Acute) Chronic headaches (Acute) Fatigue (Acute) Screening for colon cancer (Acute) Dupuytren's contracture of right hand (Acute) Tendinitis of flexor tendon of right hand (Acute) Depo-Medrol injection - right middle finger A1 bandar: 02/16/20 Hypertension, benign (Acute) Depression (Chronic) Vitamin B12 deficiency (Acute) Neoplasm of unspecified behavior of bone, soft tissue, and skin (Acute) SK (seborrheic keratosis) (Acute) Medical History (Updated 11/10/23 @ 15:41 by Veronica Olmstead MD) Edema Tubulovillous adenoma of colon History of paroxysmal supraventricular tachycardia Obesity HTN (hypertension) DM (diabetes mellitus) ALEXANDRA (obstructive sleep apnea) Surgical History (Updated 01/01/23 @ 09:23 by THI Willard) Trigger thumb, right thumb S/P Release: 12/23/2022 Trigger finger, right middle finger S/P Release: 09/03/2022 Trigger finger, right ring finger S/P Release: 09/03/2022 Colonoscopy - MAC (02/27/17) Cholecystectomy Social History (Updated 10/27/23 @ 13:32 by THI Dent) Smoking/Tobacco Use Status: Former Tobacco Use Smoking risk assessment performed?: Yes Alcohol Intake: current Alcohol Intake frequency: a few times a month Drug use: Never Substance use type: does not use Housing: house Do you feel safe at home: Yes (Unable to assess privately) Do you feel safe in your relationship?: Yes
[2023-11-10 15:42] VITALS: RESP 16
[2023-11-10] MEDS: Acetaminophen 500 MG TAB 1000 MG PO (15:47)
== END 2023-11-10 15:42 | disposition home or self-care (01) ==
PROVIDERS: Emergency Provider Emergency Medicine; PCP Family Medicine
DX: M79.661 Pain in right lower leg (principal); M79.89 Other specified soft tissue disorders
CPT/HCPCS: 99282; 99283

== ENCOUNTER 2023-11-17 06:36 | Day surgery (SDC) | payer BC, SELFPAY ==
[2023-11-17 07:02] VITALS: BP 146/55; PULSE 67; RESP 16; TEMP 36.7; O2SAT 98
[2023-11-17] MEDS: Lactated Ringers 1,000 ML 80 ML IV (07:16)
--- NOTE | 2023-11-17 07:17 | ANES.PREOP_ITS ---
General Info Date of Service Date Performed: 11/17/23 Height: 5 ft 7 in Weight: 114.9 kg Body Mass Index (BMI): 39.6 Surgical Procedure: Operation Date: 11/17/23 08:20 Proposed Procedure Side Surgeon corwin Haddad MD Meds Allergies and Home Medications Allergies Allergy/AdvReac Type Severity Reaction Status Date / Time Penicillins AdvReac Intermediate Nausea Verified 11/17/23 07:01 Home Medication ?Medication ?Instructions ?Recorded insulin lispro 100 unit/mL 10 - 15 units subcut AC 09/23/12 subcutaneous pen (Humalog KwikPen (U-100) Insulin) lisinopril 40 mg tablet 40 mg PO DAILY 09/23/12 amlodipine 5 mg tablet 5 mg PO DAILY 01/13/22 atorvastatin 20 mg tablet 20 mg PO DAILY 01/13/22 cyanocobalamin (vitamin B-12) 1,000 mcg PO DAILY 01/13/22 1,000 mcg capsule folic acid 1 mg tablet 2 mg PO DAILY 01/13/22 atenolol 25 mg tablet 25 mg PO DAILY 06/03/22 mecobalamin (vitamin B12) 1,000 1,000 mcg PO DAILY 10/20/23 mcg chewable tablet semaglutide 14 mg tablet (Rybelsus) 14 mg PO DAILY 10/20/23 blood-glucose sensor (Dexcom G7 10/22/23 Sensor device) furosemide 20 mg tablet (Lasix) 40 mg PO DAILY 10/22/23 pantoprazole 40 mg tablet,delayed 40 mg PO DAILY 10/23/23 release empagliflozin 25 mg tablet 25 mg PO DAILY 11/16/23 (Jardiance) insulin glargine U-300 conc 300 44 unit subcut HS 11/16/23 unit/mL (1.5 mL) subcutaneous pen (Toujeo SoloStar U-300 Insulin) Current Visit Medications: Current Medications Generic Name Dose Route Start Last Admin Trade Name Freq PRN Reason Stop Dose Admin Ringer's Solution 1,000 mls @ 80 mls/hr 11/17/23 06:00 11/17/23 07:16 IV 11/17/23 23:59 80 mls/hr INFUSION MANPREET Administration IV Miscellaneous Supplies 1 each 11/17/23 06:00 Iv Access IV 11/17/23 23:59 DIRECTED MANPREET Sodium Chloride 0 ml 11/17/23 06:00 Normal Saline Flush 10 Ml Syr IV 11/17/23 23:59 PRN PRN Sodium Chloride 0 ml 11/17/23 06:00 Normal Saline 10 Ml Vial IJ 11/17/23 23:59 DIRECTED PRN Sterile Water 0 ml 11/17/23 06:00 Water,Injection,Sterile 10 Ml Vial IJ 11/17/23 23:59 DIRECTED PRN PFSH Active Problems Active Problems: Problem Status Onset Code Pain and swelling of lower leg Acute M79.669, M79.89 Trigger finger, left middle finger Acute M65.332 Trigger finger, left ring finger Acute M65.342 Dupuytren's disease of palm of left hand Acute M72.0 Chronic headaches Acute R51.9, G89.29 Fatigue Acute R53.83 Screening for colon cancer Acute Z12.11 Dupuytren's contracture of right hand Acute M72.0 Tendinitis of flexor tendon of right hand Acute M77.8 Hypertension, benign Acute I10 Depression Chronic F32.9 Vitamin B12 deficiency Acute E53.8 Neoplasm of unspecified behavior of bone, soft tissue, and skin Acute D49.2 SK (seborrheic keratosis) Acute L82.1 Medical History Medical History Edema Tubulovillous adenoma of colon History of paroxysmal supraventricular tachycardia Obesity HTN (hypertension) DM (diabetes mellitus) ALEXANDRA (obstructive sleep apnea) Surgical History Surgical History Trigger thumb, right thumb S/P Release: 12/23/2022 Trigger finger, right middle finger S/P Release: 09/03/2022 Trigger finger, right ring finger S/P Release: 09/03/2022 Colonoscopy - MAC (02/27/17) Cholecystectomy Tobacco Smoking/Tobacco Use Status: Former Tobacco Use Alcohol Alcohol Intake: current Alcohol intake frequency: a few times a month Substance Use Substance use: Never Substance use type: does not use Vital Signs and Lab Results Vital Signs Most Recent Vital Signs in EMR: Most Recent Vital Signs Temp Pulse Resp BP Pulse Ox 36.7 C 67 16 146/55 H 98 11/17/23 07:02 11/17/23 07:02 11/17/23 07:02 11/17/23 07:02 11/17/23 07:02 Lab Results Blood Type / Crossmatch: No Data to Display Complete Blood Count: White Blood Count 6.14 10^3/uL (4.4-10.8) 10/19/23 10:13 Red Blood Count 4.34 10^6/uL (3.93-5.22) 10/19/23 10:13 Hemoglobin 12.1 g/dL (11.2-15.7) 10/19/23 10:13 Hematocrit 38.2 % (36.0-46.0) 10/19/23 10:13 Platelet Count 257 10^3/uL (130-400) 10/19/23 10:13 Complete Metabolic Panel: Sodium 140 mmol/L (136-145) 10/19/23 10:13 Potassium 4.1 mmol/L (3.5-5.1) 10/19/23 10:13 Chloride 105 mmol/L (98-107) 10/19/23 10:13 Carbon Dioxide 25.7 mmol/L (21.0-32.0) 10/19/23 10:13 BUN 22 mg/dL (7-18) H 10/19/23 10:13 Creatinine 1.1 mg/dL (0.55-1.02) H 10/19/23 10:13 Est GFR (CKD-EPI 2020) 57.52 (mL/min/1.73m2) 10/19/23 10:13 Calcium 10.4 mg/dL (8.5-10.1) H 10/19/23 10:13 Albumin 3.6 g/dL (3.4-5.0) 10/19/23 10:13 Glucose 299 mg/dL (74-106) H 10/19/23 10:13 Liver Function Panel: Alanine Aminotransferase (ALT/SGPT) 25 U/L (14-59) 10/19/23 10: 13 Aspartate Amino Transf (AST/SGOT) 19 U/L (15-37) 10/19/23 10:13 Coagulation Panel: No Data to Display Cardiac Panel: No Data to Display Arterial Blood Gas: No Data to Display Venous Blood Gas: No Data to Display Pancreas Panel: No Data to Display Thyroid Panel: No Data to Display Infectious Disease: No Data to Display Blood Cultures: No Data to Display Toxicology Panel: No Data to Display Imaging and Studies Imaging and Studies Study information below may be from another EMR and interpreted by another provider. Please see original notes in EMR for more complete details. Stress Test Summary: 09/2012: negative Echocardiogram Summary: DATE OF SERVICE: 10/05/12 : 1965 ____ IN PATIENT __X__ OUT-PATIENT ORDERING PHYSICIAN: Deepthi Lopez M.D. HEIGHT: 5 FT 7 IN WEIGHT: 231 LBS BSA: 2.1 m2 STUDY INDICATIONS: Respiratory abnormalities and shortness of breath. FINDINGS: LEFT VENTRICLE/LVEF: LVEF 60-65%, normal size. RIGHT VENTRICLE: Normal size and function. AORTIC VALVE: [place], no aortic stenosis or insufficiency. MITRAL VALVE: Mild mitral insufficiency. No stenosis. TRICUSPID VALVE: Mild tricuspid insufficiency. RSV/PA/RIGHT ATRIAL PRESSURE: Pulmonary artery pressures estimated at 25-30 mmHg plus right atrial pressure. PULMONIC VALVE: Trace pulmonic insufficiency, no stenosis. ATRIA: Within normal limits. DIASTOLIC INDICES: GREAT VESSELS: The inferior vena cava is normal in size and collapses with inspiration. Right atrial pressure estimated at less than 10 mmHg. PERICARDIUM: No effusion. Rhythm sinus. Anesthesia Assessment and Plan Anesthesia History Personal History: No History of Anesthesia Complications Family History: No Family History of Anesthesia Complications Exercise Tolerance Exercise Tolerance: Metabolic Equivalents>4 Pertinent Negatives Pertinent Negatives: No Symptoms of GERD, No Major Pulmonary Symptoms or Complaints and No History of CVA/TIA Cardiac & Pulmonary Exam Cardiac Exam: Normal S1/S2 Heart Sounds Pulmonary Exam: Clear Bilateral Breath Sounds Implantable Cardiac Device Does patient have a Pacemaker or an ICD?: No Airway Exam Known Difficult Airway: No Mallampati Class: 2 Mouth Opening: Normal (> 3cm) Thyromental Distance: Greater than 3 cm Neck Range of Motion: Full ROM Neck Circumference: Normal Teeth Condition: Normal Dentition ASA Classification ASA Score: ASA 2 Emergency Case?: No NPO Status NPO Status: NPO Clears >2 hours, Solids >8 hours Anesthesia Plan Resuscitation Status: Full Code Anesthesia Technique: General Anesthesia Airway Planned: Natural Airway Monitors Used: Standard Monitors
[2023-11-17 07:20] VITALS: BMI 39.6
--- NOTE | 2023-11-17 08:06 | COLE_ITS ---
Date of service: 11/17/23 Time of Service: 08:06 Colonoscopy Report Procedure Description: PROCEDURES PERFORMED: 1. Colonoscopy PREOPERATIVE DIAGNOSIS: Surveillance colonoscopy POSTOPERATIVE DIAGNOSIS: Poor prep, sigmoid diverticulosis, grade 1 internal hemorrhoids SURGEON: Diogo Haddad MD INDICATION for procedure: The patient is a 58-year-old woman who does not have any symptoms. She has a personal history of a tubulovillous adenoma removed a couple of colonoscopies ago. Her last 1 was normal. She has no symptoms. There is no family history of colon cancer. FINDINGS: The prep was relatively poor throughout. Small polyps would have been missed. Tumors and/or large polyps would not have been missed. Diverticular changes are present in the sigmoid colon. Mild hemorrhoid disease is present. SURVEILLANCE interval/FOLLOW-UP: 3 years with an extended prep. SPECIMENS: No EBL: Minimal COMPLICATIONS: None QUALITY of prep: Diffusely poor - small polyps would have been missed. Procedure in detail: The patient gave written consent and was in agreement with the indications, the potential risks as well as the benefits of the procedure. They were taken to the endoscopy suite and laid in the left lateral decubitus position. A timeout was performed and anesthesia was administered which was tolerated well. I started the procedure. Digital rectal and visual examination was performed and grossly within normal limits. A well-lubricated flexible colonoscope was then introduced and passed without any notable difficulty all the way to the cecum identified by the ileocecal valve and the appendiceal orifice. The scope was then slowly withdr awn with the above-noted findings. The patient tolerated the procedure well and was taken to the PACU in hemodynamically stable condition.
--- NOTE | 2023-11-17 08:06 | W.PM.DSUDISC ---
Date of service: 11/17/23 Time of Service: 08:06 Discharge Plan Disposition Patient Disposition: Home Condition: Good Discharge Details Attending Provider: Teodoro Haddad Primary Care Provider: Deepthi Lopez Home Meds and New Rx's Prescriptions: No Action (DME) Dexcom G7 Sensor Device See Rx Instructions .Route Rx Instructions: As directed pantoprazole 40 mg tablet,delayed release (DR/EC) 40 mg PO DAILY folic acid 1 mg tablet 2 mg PO DAILY amlodipine 5 mg tablet 5 mg PO DAILY atorvastatin 20 mg tablet 20 mg PO DAILY cyanocobalamin (vitamin B-12) 1,000 mcg capsule 1,000 mcg PO DAILY atenolol 25 mg tablet 25 mg PO DAILY Rybelsus 14 mg tablet 14 mg PO DAILY mecobalamin (vitamin B12) 1,000 mcg tablet,chewable 1,000 mcg PO DAILY furosemide [Lasix] 20 mg tablet 40 mg PO DAILY lisinopril 40 MG tablet 40 mg PO DAILY insulin lispro [Humalog KwikPen Insulin] 300 UNITS/3 ML insulin pen 10 - 15 units Sub-Q AC Patient Comments: SLIDING SCALE/CHO Jardiance 25 mg tablet 25 mg PO DAILY Patient Comments: TAKE ONE TABLET BY MOUTH EVERY DAY insulin glargine U-300 conc [Toujeo SoloStar U-300 Insulin] 300 unit/mL (1.5 mL) insulin pen 44 unit SUBCUT HS Patient Comments: INJECT 44 UNITS UNDER THE SKIN ONCE DAILY Discharge Instructions Additional Instructions: FINDINGS: The prep today was relatively poor so visualization of the colon was limited. We got all the way through it and large polyps and tumors can be definitively RULED OUT. However, small polyps could have been missed and given your history of having polyps in the past I recommend repeating another colonoscopy in 3 years with a extended prep. Stand Alone Forms: Colonoscopy Post Instructions Activity:: Activity as Tolerated Diet:: As Tolerated
[2023-11-17 08:52] VITALS: BP 129/57; PULSE 72; RESP 16; TEMP 36; O2SAT 97
[2023-11-17 09:22] VITALS: BP 151/70; PULSE 70; RESP 16; TEMP 36.1; O2SAT 100
--- NOTE | 2023-11-17 09:29 | W.ANESPOSTOP ---
Postoperative Evaluation Date, Time and Location Date Performed: 11/17/23 Time Performed: :29 Patient Location: Day Surgery Unit Vital Signs Most Recent Imported Vital Signs: Most Recent Vital Signs Temp Pulse Resp BP Pulse Ox 36.1 C L 70 16 151/70 H 100 11/17/23 09:22 11/17/23 09:22 11/17/23 09:22 11/17/23 09:22 11/17/23 09:22 Pain Score Most Recent Pain Score: Most Recent Pain Score Pain Level 0 11/17/23 09:22 Assessment Mental Status: Awake (Alert & Oriented to Patient Baseline) Airway and Respiratory Function: Patent airway with normal (patient baseline) respiratory exam Cardiovascular Function: Hemodynamically Stable Hydration Status: Adequately Hydrated Nausea & Vomiting: No Nausea or Vomiting Pain: Pt. Denies Any Pain Peripheral Nerve Block: Patient did not receive a nerve block
== END 2023-11-17 10:02 | disposition home or self-care (01) ==
PROVIDERS: PCP Family Medicine; Visit Provider Student in an Organized Health Care Education/Training Program
PROC: 0DJD8ZZ Inspection of Lower Intestinal Tract, Via Natural or Artificial Opening Endoscopic (ICD-10-PCS; CPT 45378; principal; 2023-11-17 08:15)
DX: Z12.11 Encounter for screening for malignant neoplasm of colon (principal); K57.30 Diverticulosis of large intestine without perforation or abscess without bleeding; K64.0 First degree hemorrhoids
CPT/HCPCS: 45378; 00123; J2704

== ENCOUNTER 2023-12-31 02:06 | Outpatient (CLI) | payer BC, SELFPAY ==
--- NOTE | 2023-12-31 08:30 | DI.US_ITS ---
APPROVED REPORT EXAM: Comprehensive 2D, Doppler, and color-flow Echocardiogram Patient Location: Out-Patient Treater: Martha Aviles RDCS (AE) Indications: Dyspnea on exertion Other Information Study Quality: Adequate Conclusion Normal left ventricular wall thickness and chamber size. Ejection fraction is 60%. Wall motion is n ormal Normal right ventricular size and function Both atria are normal in size Aortic valve is mildly sclerotic and trileaflet without stenosis or regurgitation Mild mitral annular calcification Normal estimated right ventricular systolic pressure 26 mmHg Wall motion Left Ventricle The left ventricle is normal size. The left ventricular systolic function is normal. The left ventric ular ejection fraction is within the normal range. There is normal left ventricular wall thickness. T here is normal LV segmental wall motion. Left ventricular filling pattern is normal for age. There is no ventricular septal defect visualized. LVEF is 60%. Right Ventricle The right ventricle is normal size. The right ventricular systolic function is normal. Atria The left atrium size is normal. The right atrium size is normal. The interatrial septum is intact wit h no evidence for an atrial septal defect. Aortic Valve The Aortic valve is mildly sclerotic. Aortic valve is trileaflet. There is no aortic valvular stenosi s. No aortic regurgitation is present. Mitral Valve Mild mitral annular calcification. No evidence of mitral valve stenosis. Trace mitral regurgitation. Tricuspid Valve The tricuspid valve is normal in structure. There is no tricuspid valve stenosis. Trace tricuspid reg urgitation. The RVSP is 26.0_ mmHg. Pulmonic Valve The pulmonary valve is normal in structure. There is no pulmonic valvular stenosis. There is no pulmo leonid valvular regurgitation. Great Vessels The aortic root is normal in size. The ascending aorta is mildly to moderately Aortic arch is normal in caliber. dilated. IVC is normal in size and collapses >50% with inspiration. Pericardium There is no pericardial effusion. 2D Dimensions IVSD d PLAX 1.03 cm F: 0.6-1.0 Ao Root d 3.39 cm F: 2.7 - 3.3 LVPW d PLAX 1.03 cm F: 0.6 - 1.0 Ao Asc Diam d 3.70 cm F: 2.3 - 3.1 LVID d PLAX 4.46 cm F: 3.8 - 5.2 LVDs 3.02 cm F: 2.2 - 3.5 LV EF Teichholz 60.5 % FS 32.14 % LV EDV (Teich) 90.4 mL LV ESV (Teich) 35.7 mL M-Mode TAPSE 2.99 cm (M/F) >1.7 Auto EF LV EDV A4C 107.8 mL LV EDV A2C 92.4 mL LV EDV BP 100.9 mL LV ESV A4C 42.4 mL LV ESV A2C 36.9 mL LV ESV BP 40.0 mL LVEF(%) A4C 60.6 % LVEF(%) A2C 60.1 % LVEF(%) BP 60.3 % LV SV A4C 65.3 ml LV SV A2C 55.5 ml LV SV BP 60.9 ml LV CO A4C 4.6 L/min LV CO A2C 3.7 L/min LV CO BP 4.1 L/min HR A4C 70.18 BPM HR A2C 66.40 BPM LV EDV Index (BP) LA Volume LA Length A4C 5.5 cm LA Length A2C 5.5 cm LA Area A4C s 20.17 cm2 LA Area A2C s 21.77 cm2 LA Vol A4C A-L 62.82 mL LA Vol A2C A-L 72.98 mL LA Vol Biplane A-L 67.8 mL LA Vol/BSA A4C A-L LA Vol/BSA A2C A-L LA Vol/BSA BP A-L 30.3 mL/m2 LA Vol A4C MOD 57.9 mL LA Vol A2C MOD 67.3 mL LA Vol BP MOD 62.4 mL RA Volume RA Area A4C 12.7 cm2 RA ESV A4C (A-L) 28.4mL RA Vol/BSA A4C A-L RA Length A4C 4.8 cm RA ESV A4C (MOD) 26.8mL LV Diastology MV E' medial 0.078 (>0.07 m/s) MV E Vmax 1.13 (0.4-1.3 m/s) MV E/E' MED 14.51 (<14) MV A Vmax 1.45 (0.4-1.3 m/s) MV E' lateral 0.061 (>0.1 m/s) E/A Ratio 0.8 MV E/E' LAT 18.53 (<14) MV E' Average 0.070 m/s MV E/E'(average) 16.27 Aortic Valve AoV Vmax 1.31 m/s LVOT Vmax 0.91 m/s AoV Peak Grad 6.9 mmHg LVOT Peak Grad 3.3 mmHg AoV Area (Vmax) 2.29 cm2 LVOT VTI 0.247 m AoV VTI 0.331 m LVOT Mean Grad 2.0 mmHg AoV Mean Issa. 0.90 m/s LVOT SV 81.25 mL AoV Mean Grad 3.6 mmHg LVOT Diam s 2.00 cm AoV Area (VTI) 2.46 cm2 AV Regurg Peak Gr. 6.88 mmHg Velocity Ratio 0.69 Mitral Valve MV DT 267 (160-240 msec) MV Vmax TIPS 1.50 m/s MV Mean Grad 4.1 (<2mmHg) MV VTI 0.500 m Pulmonary Valve PV Vmax 0.78 (0.5-1.5 m/s) RVOT Vmax 0.76 m/s PV Peak Grad 2.4 mmHg RVOT Peak Gr. 2.3 mmHg PV Mean Issa 0.58 m/s RVOT VTI 0.189 m PV Mean Grad 1.5 mmHg RVOT Mean Gr. 1.3 mmHg Tricuspid Valve RA Pressure 3.00 mmHg TR Vmax 2.40 m/s TV S' 0.15 m/s TR Peak Grad 22.9 mmHg RVSP (TR) 26.0 mmHg
== END 2023-12-31 02:26 ==
LOC: DI 02:06
PROVIDERS: PCP Family Medicine; Visit Provider Nurse Practitioner Family
DX: R06.09 Other forms of dyspnea (principal)
CPT/HCPCS: 93306

== ENCOUNTER 2024-01-20 11:19 | Outpatient (REF) | payer BC, SELFPAY ==
[2024-01-20 15:35] LABS: COMMENT (LAB VIEW ONLY) 221.05 mg/dL; Microalb ug/mg Crea 31.7 ug/mg Cr
== END 2024-01-20 11:20 | disposition home or self-care (01) ==
LOC: NCHCN 11:19
PROVIDERS: PCP Family Medicine; Visit Provider Nurse Practitioner Family
DX: E11.9 Type 2 diabetes mellitus without complications (principal)
CPT/HCPCS: 82043; 82570

== ENCOUNTER 2024-07-21 10:06 | Outpatient (REF) | payer BC, SELFPAY ==
[2024-07-21 16:42] LABS: ALT 17 U/L (14-59); AST 16 U/L (15-37); Albumin 3.4 g/dL (3.4-5.0); Alkaline Phosphatase 97 U/L (46-116); Anion Gap 6.5 mmol/L (3-11); BUN 23 mg/dL (7-18); Bilirubin, Total 0.4 mg/dL (0.2-1.0); CO2 27.5 mmol/L (21.0-32.0); Calcium 9.5 mg/dL (8.5-10.1); Chloride 105 mmol/L (98-107); Estimated GFR 64.09 (mL/min/1.73m2); Glucose 233 mg/dL (74-106); NT-proBNP 222 pg/mL (<300); Potassium 4.2 mmol/L (3.5-5.1); Sodium 139 mmol/L (136-145); TSH (W/Ref FT4) 2.22 uIU/mL (0.36-3.74); Total Protein 6.8 g/dL (6.4-8.2)
== END 2024-07-21 10:07 | disposition home or self-care (01) ==
LOC: NCHCN 10:06
PROVIDERS: PCP Family Medicine; Visit Provider Nurse Practitioner Family
DX: R60.0 Localized edema (principal)
CPT/HCPCS: 80053; 83880; 84443

== ENCOUNTER 2024-08-03 07:56 | Emergency (ER) | payer BC, SELFPAY ==
[2024-08-03 08:05] VITALS: BP 171/60; PULSE 77; RESP 14; TEMP 36.5; O2SAT 99
[2024-08-03 08:14] VITALS: BP 171/60; PULSE 77; RESP 14; TEMP 36.5; O2SAT 99
--- NOTE | 2024-08-03 08:15 | RT.EKG_ITS ---
APPROVED REPORT Exam: Resting ECG Reason for Exam: abdominal pain Patient Location: E HR:69 bpm ECG Measurements Heart Rate 69 AXIS OR 185 P 11 QRSd 96 QRS 68 QT 389 T 29 QTc 418 Conclusion Sinus rhythm...normal P axis, V-rate 60- 99 Probable lateral infarct, old...Q>35mS, abnormal ST-T, V5-6 I aVL
--- NOTE | 2024-08-03 08:20 | DI.CT_ITS ---
Exam(s) CT ABDOMEN PELVIS W EXAM: CT ABDOMEN PELVIS W CLINICAL HISTORY: RLQ and flank pain. TECHNIQUE: Imaging Protocol: Axial computed tomography images with coronal and sagittal reformatted images were created and reviewed CONTRAST MATERIAL: Intravenous: Omnipaque 350 Contrast volume:100 ml Oral: yes no COMPARISON: CT ABD PELVIS WITH CONTRAST from 12/11/2008 FINDINGS: ABDOMEN and PELVIS: Lung Bases: No acute findings. Small to moderate-sized hiatal hernia. Liver: Normal density. No suspicious mass. Gallbladder and biliary tract: Cholecystectomy. No biliary dilation. Pancreas: Normal density. No abnormal calcifications or inflammatory process. No evidence of mass. Spleen: Normal. Kidneys: Normal size, contour and axis. No radiodense stones. No obstructive uropathy. No suspicious masses seen. Adrenal glands: No masses seen. Vasculature: Abdominal aorta non-dilated. Atherosclerotic changes causing some luminal narrowing. S evere narrowing of the left proximal on external iliac artery. Soft tissues: Unremarkable. Bladder: No gross wall thickening. No calculi.No focal mass. Bowel: No obstruction. No bowel wall thickening. Appendix normal. Peritoneal cavity: No ascites. No focal collection. No mesenteric inflammatory response. No free air . Bones: Unremarkable for age. Reproductive organs: Unremarkable. Lymph nodes: No pathologically enlarged lymph nodes. IMPRESSION:: No acute abnormality in the abdomen or pelvis. Small a moderate size hiatal hernia. Severe atherosclerotic changes with significant narrowing of the left common iliac artery. RADIATION DOSE DELIVERED: 860.08mGy.cm Total DLP DATA REPOSITORY: All CT scans at this facility are submitted to the National Radiology Data Registry (NRDR) Dose Index Registry (DIR) with the [employer] (A[employer]). RADIATION OPTIMIZATION: All CT scans at this facility use at least one of these dose optimization te chniques: automated exposure control; mA and/or kV adjustment per patient size (includes targeted exa ms where dose is matched to clinical indication); or iterative reconstruction.
[2024-08-03] MEDS: ACETAMINOPHEN 1,000 MG/100 ML BAG 400 MG (08:49)
[2024-08-03 08:56] LABS: Abs Immature Grans 0.02 10^3/uL (0.0-0.06); Absolute Basophil Count 0.03 10^3/uL (0.0-0.2); Absolute Lymphocyte Count 1.33 10^3/uL (1.2-3.4); Absolute Monocyte Count 0.59 10^3/uL (0.1-0.8); Absolute Neutrophil Count 3.86 10^3/uL (1.2-6.7); Basophils % 0.5 %; Eosinophils % 1.7 %; HCT 38.6 % (36.0-46.0); HGB 12.2 g/dL (11.2-15.7); Immature Grans % 0.3 %; Lymphocytes % 22.4 %; MCH 27.7 pg (27.0-33.0); MCHC 31.6 % (32.0-36.0); MCV 88 fL (80-95); MPV 11.5 fL (8.0-11.0); Monocytes % 9.9 %; Neutrophils % 65.2 %; Platelet Count 238 10^3/uL (130-400); RBC 4.41 10^6/uL (3.93-5.22); RDW 14.1 % (11.7-14.6); RDW-SD 45.2 fL; WBC 5.93 10^3/uL (4.4-10.8)
[2024-08-03] MEDS: Normal Saline - Diluent 50 ML VIAL IJ (09:51)
[2024-08-03] MEDS: Omnipaque 350 MG/ML 500 ML BTL-Imaging package IJ (09:53)
[2024-08-03 10:38] LABS: ALT 12 U/L (14-59); AST 16 U/L (15-37); Albumin 3.3 g/dL (3.4-5.0); Alkaline Phosphatase 101 U/L (46-116); Anion Gap 9.9 mmol/L (3-11); BUN 32 mg/dL (7-18); Bilirubin, Total 0.3 mg/dL (0.2-1.0); CO2 25.1 mmol/L (21.0-32.0); CREATININE 1.2 mg/dL (0.55-1.02); Calcium 9.6 mg/dL (8.5-10.1); Chloride 106 mmol/L (98-107); Glucose 128 mg/dL (74-106); Lipase 22 U/L (<78); Potassium 4.3 mmol/L (3.5-5.1); Sodium 141 mmol/L (136-145); Total Protein 7.3 g/dL (6.4-8.2)
[2024-08-03 11:03] LABS: Bilirubin Negative (Negative); Blood Trace-intact (Negative); Clarity Clear (Clear); Glucose Negative (Negative); Ketones Negative (Negative); Leukocyte Esterase Negative (Negative); Nitrite Negative (Negative); Urobilinogen 0.2 mg/dL (Up to 0.2); pH 5.5 (5-8)
[2024-08-03 11:15] LABS: Bacteria Negative HPF (Negative); C & S Indicated? No; Casts Negative LPF (Negative); Crystals Negative HPF (Negative); Epithelial Cells Rare HPF (Negative); Mucus Trace (Negative); RBC 0-2 HPF (0-2); WBC Negative HPF (0-5)
[2024-08-03 11:35] VITALS: BP 166/54; PULSE 78; RESP 16; TEMP 36.6; O2SAT 100
--- NOTE | 2024-08-03 12:07 | ED.GENADUL_ITS ---
Discharge Plan Disposition Patient Disposition: Home Condition: Stable Discharge Details Clinical Impression: Acute flank pain, Iliac artery stenosis, left Primary Care Provider: Deepthi Lopez ED Provider: Cici Delgadillo Home Meds and New Rx's Prescriptions: Continued (DME) Dexcom G7 Sensor Device See Rx Instructions .Route Rx Instructions: As directed insulin lispro [Humalog KwikPen Insulin] 300 UNITS/3 ML insulin pen 10 - 15 units Sub-Q AC Patient Comments: SLIDING SCALE/CHO insulin glargine U-300 conc [Toujeo SoloStar U-300 Insulin] 300 unit/mL (1.5 mL) insulin pen 42 unit SUBCUT HS Patient Comments: INJECT 44 UNITS UNDER THE SKIN ONCE DAILY famotidine 20 mg tablet 20 mg PO BID lisinopril 10 mg tablet 10 mg PO DAILY Patient Comments: TAKE ONE TABLET BY MOUTH EVERY DAY Discharge Instructions Instructions: Flank Pain (DC) Additional Instructions: Please take Tylenol as needed for discomfort Follow-up with your primary care physician in the next several days for recheck, you have very scant blood in your urine, recheck urine within the next week or so and have your blood pressure rechecked by your doctor You have narrowing to your iliac artery, I have placed a referral to [facility] to review your imaging and exam, they will likely call you Please return should you have worsening pain fever chills persistent diarrhea or should any new concerns arise make sure you keep yourself hydrated with at least eight 8 ounce glasses of water daily Stand Alone Forms: Work Release Referrals: Katlyn Lomas [NURSE PRACTITIONER] - 1 day HPI General Date/Time Provider Initiated Documentation: 08/03/24 08:05 . HPI Narrative: 59-year-old female with insulin-dependent diabetes and hypertension presents with right lower quadrant pain. Pain started last evening, described as worse than two blocks, with four episodes of loose watery stool this morning. Pain radiates from front to back. No similar symptoms currently or in the past, except for an episode 2 weeks ago lasting 2-3 days. Unsure of blood sugar levels. No fever, chills, recent antibiotic use, or urinary symptoms. History of cholecystectomy, no recent abdominal surgeries. Related Data Home Medications ?Medication ?Instructions ?Recorded ?Confirmed insulin lispro 100 unit/mL 10 - 15 units subcut AC 09/23/12 08/03/24 subcutaneous pen (Humalog KwikPen (U-100) Insulin) blood-glucose sensor (Dexcom G7 10/22/23 08/03/24 Sensor device) insulin glargine U-300 conc 300 42 unit subcut HS 11/16/23 08/03/24 unit/mL (1.5 mL) subcutaneous pen (Toujeo SoloStar U-300 Insulin) famotidine 20 mg tablet 20 mg PO BID 08/03/24 08/03/24 lisinopril 10 mg tablet 10 mg PO DAILY 08/03/24 08/03/24 Allergies Allergy/AdvReac Type Severity Reaction Status Date / Time Penicillins AdvReac Intermediate Nausea Verified 08/03/24 08:09 General Stated Complaint: Abd Prob PRERNA: 3 Exam Narrative Exam Narrative: General Appearance: Alert and oriented, speaking in complete sentences. Vital signs: Within normal limits. HEENT: Within normal limits. Respiratory: Lungs clear to auscultation. Cardiovascular: Regular cardiac rate and rhythm. Gastrointestinal: Right flank tenderness and mild anterior right lower quadrant tenderness, no rebound or guarding. Back, Musculoskeletal: Right flank tenderness. Extremities: 1+ peripheral edema in bilateral lower extremities. Skin: Warm and dry, no rash. Neurological: Normal. Course Vital Signs Vital signs: Vital Signs Temperature 36.5 C 08/03/24 08:05 Pulse 77 08/03/24 08:05 Respiratory Rate 14 08/03/24 08:05 Blood Pressure 171/60 H 08/03/24 08:05 Pulse Oximetry 99 08/03/24 08:05 Temperature 36.6 C 08/03/24 11:35 Temperature Source Oral 08/03/24 08:14 Pulse 78 08/03/24 11:35 Respiratory Rate 16 08/03/24 11:35 Blood Pressure 166/54 H 08/03/24 11:35 Pulse Oximetry 100 08/03/24 11:35 Oxygen Delivery Method Room Air 08/03/24 08:14 Oxygen Flow Rate 0 08/03/24 08:14 Pain Level 0 08/03/24 11:35 Lab/Test Results Lab/Test Results: Laboratory Tests Range/Units 08/03/24 08/03/24 08/03/24 08:44 09:20 10:17 WBC (4.4-10.8) 10^3/uL 5.93 RBC (3.93-5.22) 10^6/uL 4.41 Hgb (11.2-15.7) g/dL 12.2 Hct (36.0-46.0) % 38.6 MCV (80-95) fL 88 MCH (27.0-33.0) pg 27.7 MCHC (32.0-36.0) % 31.6 L RDW (11.7-14.6) % 14.1 Plt Count (130-400) 10^3/uL 238 MPV (8.0-11.0) fL 11.5 H Immature Gran % % 0.3 Neutrophils % % 65.2 Lymphocytes % % 22.4 Monocytes % % 9.9 Eosinophils % % 1.7 Basophils % % 0.5 Nucleated RBC % (0.0-0.3) % 0.0 Absolute Neutrophils (1.2-6.7) 10^3/uL 3.86 Absolute Lymphocytes (1.2-3.4) 10^3/uL 1.33 Absolute Monocytes (0.1-0.8) 10^3/uL 0.59 Absolute Eosinophils (0.0-0.7) 10^3/uL 0.10 Absolute Basophils (0.0-0.2) 10^3/uL 0.03 Sodium Cancelled Cancelled 141 Potassium Cancelled Cancelled 4.3 Chloride Cancelled Cancelled 106 Carbon Dioxide Cancelled Cancelled 25.1 Anion Gap Cancelled Cancelled 9.9 BUN Cancelled Cancelled 32 H Creatinine Cancelled Cancelled 1.2 H Est GFR (CKD-EPI 2020) Cancelled Cancelled 51.50 Glucose Cancelled Cancelled 128 H Calcium Cancelled Cancelled 9.6 Total Bilirubin Cancelled Cancelled 0.3 AST Cancelled Cancelled 16 ALT Cancelled Cancelled 12 L Alkaline Phosphatase Cancelled Cancelled 101 Total Protein Cancelled Cancelled 7.3 Albumin Cancelled Cancelled 3.3 L Lipase Cancelled Cancelled 22 Urine Color (Yellow) Urine Clarity (Clear) Urine pH (5-8) Ur Specific [place] (1.005-1.025) Urine Protein (Neg-Trace) mg/dL Urine Ketones (Negative) mg/dL Urine Blood (Negative) Urine Nitrite (Negative) Urine Bilirubin (Negative) Urine Urobilinogen (Up to 0.2) mg/dL Ur Leukocyte Esterase (Negative) Urine RBC (0-2) HPF Urine WBC (0-5) HPF Ur Epithelial Cells (Negative) HPF Urine Crystals (Negative) HPF Urine Bacteria (Negative) HPF Urine Casts (Negative) LPF Urine Mucus (Negative) Ur Culture Indicated? Urine Glucose (Negative) mg/dL Range/Units 08/03/24 10:46 WBC (4.4-10.8) 10^3/uL RBC (3.93-5.22) 10^6/uL Hgb (11.2-15.7) g/dL Hct (36.0-46.0) % MCV (80-95) fL MCH (27.0-33.0) pg MCHC (32.0-36.0) % RDW (11.7-14.6) % Plt Count (130-400) 10^3/uL MPV (8.0-11.0) fL Immature Gran % % Neutrophils % % Lymphocytes % % Monocytes % % Eosinophils % % Basophils % % Nucleated RBC % (0.0-0.3) % Absolute Neutrophils (1.2-6.7) 10^3/uL Absolute Lymphocytes (1.2-3.4) 10^3/uL Absolute Monocytes (0.1-0.8) 10^3/uL Absolute Eosinophils (0.0-0.7) 10^3/uL Absolute Basophils (0.0-0.2) 10^3/uL Sodium Potassium Chloride Carbon Dioxide Anion Gap BUN Creatinine Est GFR (CKD-EPI 2020) Glucose Calcium Total Bilirubin AST ALT Alkaline Phosphatase Total Protein Albumin Lipase Urine Color (Yellow) Yellow Urine Clarity (Clear) Clear Urine pH (5-8) 5.5 Ur Specific [place] (1.005-1.025) 1.010 Urine Protein (Neg-Trace) mg/dL Negative Urine Ketones (Negative) mg/dL Negative Urine Blood (Negative) Trace-intact H Urine Nitrite (Negative) Negative Urine Bilirubin (Negative) Negative Urine Urobilinogen (Up to 0.2) mg/dL 0.2 Ur Leukocyte Esterase (Negative) Negative Urine RBC (0-2) HPF 0-2 Urine WBC (0-5) HPF Negative Ur Epithelial Cells (Negative) HPF Rare Urine Crystals (Negative) HPF Negative Urine Bacteria (Negative) HPF Negative Urine Casts (Negative) LPF Negative Urine Mucus (Negative) Trace Ur Culture Indicated? No Urine Glucose (Negative) mg/dL Negative Medical Decision Making Results: CT abdomen and pelvis shows evidence of iliac artery stenosis no other acute abnormality CBC without leukocytosis chemistry BUN and creatinine slightly elevated, urinalysis scant blood Initial Assessment: 59-year-old female with history of insulin-dependent diabetes and hypertension presents with right lower quadrant pain, worse than two blocks, and four episodes of loose watery stool this morning. Pain radiates from front to back. No history of similar symptoms except for an episode 2 weeks ago lasting 2-3 days. Right flank tenderness and mild anterior right lower quadrant tenderness on examination. ED Course: - Ordered CT scan of abdomen and pelvis - Diagnostic blood work, BUN and creatinine mildly elevated encouraged hydration at home - Urinalysis, scant blood noted, and patient encouraged to have this rechecked by her primary care physician - No evidence of cholecystitis, bowel obstruction or appendicitis/diverticulitis per radiology interpretation my review patient encouraged to follow-up with primary care physician will take Tylenol as needed - Patient feels improvement of symptoms ambulatory with steady gait - Vascular surgery consult placed for iliac stenosis, distal pulses are intact bilateral lower extremity with good perfusion - No additional diarrhea noted throughout this day I will hold on ordering stool sample at this time DDx: Small bowel obstruction, diverticulitis, colitis, appendicitis Final Assessment: Patient with right lower quadrant pain and loose watery stool. Pain radiates from front to back. No history of similar symptoms except for an episode 2 weeks ago. Right flank tenderness and mild anterior right lower quadrant tenderness on examination. CT scan of abdomen and pelvis, diagnostic blood work, and urinalysis ordered. Clinical Impression: - Right lower quadrant pain MDM Components Evaluation: - Number of Differential Diagnoses or Management Options: Right lower quadrant pain - Amount and Complexity of Data Reviewed: CT scan of abdomen and pelvis, diagnostic blood work, urinalysis - Risk of Complication and Morbidity or Mortality: Moderate due to history of insulin-dependent diabetes and hypertension Quality:SDOH Health Related Social Needs: No Data to Display PFSH All Active Problems (Updated 08/03/24 @ 11:26 by THI Farah) Iliac artery stenosis, left (Acute) Acute flank pain (Acute) Trigger finger, left middle finger (Acute) Trigger finger, left ring finger (Acute) Dupuytren's disease of palm of left hand (Acute) Chronic headaches (Acute) Fatigue (Acute) Screening for colon cancer (Acute) Dupuytren's contracture of right hand (Acute) Tendinitis of flexor tendon of right hand (Acute) Depo-Medrol injection - right middle finger A1 bandar: 02/16/20 Hypertension, benign (Acute) Depression (Chronic) Vitamin B12 deficiency (Acute) Neoplasm of unspecified behavior of bone, soft tissue, and skin (Acute) SK (seborrheic keratosis) (Acute) Medical History (Updated 08/03/24 @ 11:26 by THI Farah) Edema Tubulovillous adenoma of colon History of paroxysmal supraventricular tachycardia Obesity HTN (hypertension) DM (diabetes mellitus) ALEXANDRA (obstructive sleep apnea) Surgical History (Updated 11/17/23 @ 14:15 by Carla Brown) Trigger thumb, right thumb S/P Release: 12/23/2022 Trigger finger, right middle finger S/P Release: 09/03/2022 Trigger finger, right ring finger S/P Release: 09/03/2022 Colonoscopy - MAC (11/2023) Cholecystectomy Social History (Updated 10/27/23 @ 13:32 by THI Dent) Smoking/Tobacco Use Status: Former Tobacco Use Smoking risk assessment performed?: Yes Alcohol Intake: current Alcohol Intake frequency: a few times a month Drug use: Never Substance use type: does not use Housing: apartment Do you feel safe at home: Yes Do you feel safe in your relationship?: Yes
== END 2024-08-03 11:43 | disposition home or self-care (01) ==
PROVIDERS: Emergency Provider Physician Assistant; PCP Family Medicine
DX: R10.31 Right lower quadrant pain (principal); R19.7 Diarrhea, unspecified; I70.8 Atherosclerosis of other arteries; Z90.49 Acquired absence of other specified parts of digestive tract; Z87.891 Personal history of nicotine dependence; I10 Essential (primary) hypertension; E11.9 Type 2 diabetes mellitus without complications; Z79.4 Long term (current) use of insulin
CPT/HCPCS: 36415; 80053; 83690; 93005; 99285; 74177; 81003; 81015; 85025; 93010; 99284; J0131

== ENCOUNTER 2024-10-11 02:44 | Outpatient (CLI) | payer BC, SELFPAY ==
--- NOTE | 2024-10-11 10:13 | DI.RAD_ITS ---
Exam(s) XR HIP PELVIS ADULT BL EXAM: XR HIP PELVIS ADULT BL CLINICAL HISTORY: BILAT HIP PAIN,M25.551,M25.552. TECHNIQUE: 2D digital imaging was performed of the pelvis and bilateral hips. Three images were obtained. AP pelvis and lateral views of both hips were obtained. COMPARISON: CR LUMBAR SPINE COMPLETE from 02/27/[address] ABDOMEN PELVIS W from 08/03/2024 FINDINGS: BONES: No acute fracture is present. No bony destructive lesion is seen. There are enthesophytes seen at the greater trochanters bilaterally. JOINTS: No dislocation present. The hips are well maintained bilaterally. SOFT TISSUE: Vascular calcifications are present. IMPRESSION: Unremarkable radiographs of bilat hips. DATA REPOSITORY: RADIATION DOSE DELIVERED:
== END 2024-10-11 03:04 ==
PROVIDERS: PCP Family Medicine; Visit Provider Nurse Practitioner Family
DX: M25.551 Pain in right hip (principal); M25.552 Pain in left hip
CPT/HCPCS: 73521

== ENCOUNTER 2024-10-29 11:59 | Emergency (ER) | payer BC, SELFPAY ==
[2024-10-29] VITALS (65 sets, daily range): BP systolic 131–160; BP diastolic 46–70; PULSE 80–104; RESP 11–23; TEMP 36.8; O2SAT 96–99
[2024-10-29] MEDS: Ondansetron 4 MG/2 ML VIAL IVP (12:05)
[2024-10-29] MEDS: Glucose Oral Gel 15 GM/37.5 GM TUBE (12:12)
--- NOTE | 2024-10-29 12:15 | W.ED.GENAD ---
Discharge Plan Disposition Patient Disposition: Home Condition: Stable Discharge Details Clinical Impression: Hypoglycemia Primary Care Provider: Deepthi Lopez ED Provider: Aureliano Kellogg Home Meds and New Rx's Prescriptions: New ondansetron 4 mg tablet,disintegrating 4 mg PO Q8H PRN (Reason: nausea and vomiting) Qty: 30 0RF Continued (DME) Dexcom G7 Sensor Device See Rx Instructions .Route Rx Instructions: As directed insulin lispro [Humalog KwikPen Insulin] 300 UNITS/3 ML insulin pen 10 - 15 units Sub-Q AC Patient Comments: SLIDING SCALE/CHO insulin glargine U-300 conc [Toujeo SoloStar U-300 Insulin] 300 unit/mL (1.5 mL) insulin pen 42 unit SUBCUT HS Patient Comments: INJECT 44 UNITS UNDER THE SKIN ONCE DAILY famotidine 20 mg tablet 20 mg PO BID lisinopril 10 mg tablet 10 mg PO DAILY Patient Comments: TAKE ONE TABLET BY MOUTH EVERY DAY Discharge Instructions Additional Instructions: Resume your insulin tomorrow. Follow-up with your primary care provider as needed. If you feel more ill or have new symptoms such as persistent vomiting return to the emergency department for reevaluation. HPI General Mode of arrival: wheelchair. Date/Time Provider Initiated Documentation: 10/29/24 12:01. Limitations to Documentation: no limitations. Information obtained by: patient. History of Present Illness 59 year old F presents to the emergency department with the chief complaint of nausea, fatigue, low blood sugar, described as moderate, Patient started experiencing this hour(s) (1) and it has been constant. No relieving factors improve symptom(s), No exacerbating factors reported . Patient notes no other symptoms.; denies chest pain, fever/chills and syncope. Patient did receive the following treatments prior to arrival, none Related Data Home Medications ?Medication ?Instructions ?Recorded ?Confirmed insulin lispro 100 unit/mL 10 - 15 units subcut AC 09/23/12 08/03/24 subcutaneous pen (Humalog KwikPen (U-100) Insulin) blood-glucose sensor (Dexcom G7 10/22/23 08/03/24 Sensor device) insulin glargine U-300 conc 300 42 unit subcut HS 11/16/23 08/03/24 unit/mL (1.5 mL) subcutaneous pen (Toujeo SoloStar U-300 Insulin) famotidine 20 mg tablet 20 mg PO BID 08/03/24 08/03/24 lisinopril 10 mg tablet 10 mg PO DAILY 08/03/24 08/03/24 ondansetron 4 mg disintegrating 4 mg PO Q8H PRN nausea and 10/29/24 tablet vomiting #30 tabs Previous Rx's ?Medication ?Instructions ?Recorded ondansetron 4 mg disintegrating 4 mg PO Q8H PRN nausea and 10/29/24 tablet vomiting #30 tabs Allergies Allergy/AdvReac Type Severity Reaction Status Date / Time Penicillins AdvReac Intermediate Nausea Verified 08/03/24 08:09 General Stated Complaint: Diabetes PRERNA: 2 Review of Systems All systems reviewed & are unremarkable except as noted in HPI and below Constitutional Constitutional: Denies chills, Denies fever(s) and Reports weakness ENT Ears, Nose, Mouth, and Throat: Denies change in voice Cardiovascular Cardiovascular: Denies chest pain and Denies dyspnea Respiratory Respiratory: Denies cough and Denies dyspnea Gastrointestinal Gastrointestinal: Denies abdominal pain, Reports nausea and Reports vomiting Neurologic Neurologic: Reports weakness Exam Const General: no acute distress Orientation: alert [facility] Head: normal to inspection Ears: external ears normal General nose exam: external nose normal Mouth: moist mucous membranes Eyes General: appearance normal, both eyes and all related structures Neck Neck: normal visual inspection Resp Effort & Inspection: normal respiratory effort and able to speak in complete sentences Cardio Rate: regular rate GI Palpation: soft and nontender Skin General skin exam: no rashes or lesions noted Neuro General: patient alert and patient oriented x3 Extrem General: normal to inspection Psych Mental Status: mental status grossly normal Course Vital Signs Vital signs: Vital Signs Temperature 36.8 C 10/29/24 12:05 Pulse 104 H 10/29/24 12:05 Respiratory Rate 16 10/29/24 12:05 Blood Pressure 156/69 H 10/29/24 12:05 Temperature 36.8 C 10/29/24 12:10 Temperature Source Oral 10/29/24 12:05 Pulse 104 H 10/29/24 12:10 Respiratory Rate 16 10/29/24 12:10 Blood Pressure 156/69 H 10/29/24 12:10 Blood Pressure Position Supine 10/29/24 12:05 Pulse Oximetry 98 10/29/24 12:10 Oxygen Delivery Method Room Air 10/29/24 12:10 Oxygen Flow Rate 0 10/29/24 12:05 Pain Level 0 10/29/24 12:10 Medical Decision Making 59-year-old female with a history of insulin-dependent diabetes comes in after she injected 4 units of her rapid acting lispro rather than her glargine. She says she has been feeling well this morning and had just finished eating breakfast when she injected the insulin. She started to feel nauseous and fatigued and then realized she injected the wrong insulin. She denies any recent fevers or chills, no chest pain. She is alert and oriented on arrival answering questions appropriately and appears mildly fatigued with a blood glucose of 50. She is tolerating p.o. I suspect her symptoms are due to be hypoglycemic from taking normal insulin. Will have her continue to take oral and also give IV dextrose and check a CBC and CMP and reassess. Labs unremarkable other than hypoglycemia. Patient has been observed for several hours and is tolerating p.o. She is beyond the time of peak effect of the rapid acting insulin. Her glucose is now 108, she has no nausea or vomiting and feels well. She will resume her normal insulin dosing tomorrow. Return precautions given Differential Diagnosis Differential Diagnosis: Hypoglycemia, electrolyte abnormality PFSH All Active Problems (Updated 10/29/24 @ 14:29 by Aureliano Kellogg MD) Hypoglycemia (Acute) Trigger finger, left middle finger (Acute) Trigger finger, left ring finger (Acute) Dupuytren's disease of palm of left hand (Acute) Chronic headaches (Acute) Fatigue (Acute) Screening for colon cancer (Acute) Dupuytren's contracture of right hand (Acute) Tendinitis of flexor tendon of right hand (Acute) Depo-Medrol injection - right middle finger A1 bandar: 02/16/20 Hypertension, benign (Acute) Depression (Chronic) Vitamin B12 deficiency (Acute) Neoplasm of unspecified behavior of bone, soft tissue, and skin (Acute) SK (seborrheic keratosis) (Acute) Medical History (Updated 10/29/24 @ 14:29 by Aureliano Kellogg MD) Edema Tubulovillous adenoma of colon History of paroxysmal supraventricular tachycardia Obesity HTN (hypertension) DM (diabetes mellitus) ALEXANDRA (obstructive sleep apnea) Surgical History (Updated 11/17/23 @ 14:15 by Carla Brown) Trigger thumb, right thumb S/P Release: 12/23/2022 Trigger finger, right middle finger S/P Release: 09/03/2022 Trigger finger, right ring finger S/P Release: 09/03/2022 Colonoscopy - MAC (11/2023) Cholecystectomy Social History (Updated 10/27/23 @ 13:32 by THI Dent) Smoking/Tobacco Use Status: Former Tobacco Use Smoking risk assessment performed?: Yes Alcohol Intake: current Alcohol Intake frequency: a few times a month Drug use: Never Substance use type: does not use Housing: apartment Do you feel safe at home: Yes Do you feel safe in your relationship?: Yes
[2024-10-29 12:18] LABS: Abs Immature Grans 0.02 10^3/uL (0.0-0.06); HCT 39.4 % (36.0-46.0); HGB 12.6 g/dL (11.2-15.7); Immature Grans % 0.2 %; MCH 27.6 pg (27.0-33.0); MCHC 32.0 % (32.0-36.0); MCV 86 fL (80-95); MPV 11.0 fL (8.0-11.0); Platelet Count 292 10^3/uL (130-400); RBC 4.57 10^6/uL (3.93-5.22); RDW 15.4 % (11.7-14.6); RDW-SD 48.4 fL; WBC 8.47 10^3/uL (4.4-10.8)
[2024-10-29 12:19] LABS: BE (Venous) 4 mmol/L (-2-3); HCO3 (Venous) 28 mmol/L (23-28); O2 Sat (Venous) 53 %; TCO2 (Venous) 26 mmol/L (24-29); pCO2 (Venous) 45 mmHg (41-51); pO2 (Venous) 29 mmHg
[2024-10-29 12:29] LABS: Magnesium 1.6 mg/dL (1.8-2.4)
[2024-10-29 12:34] LABS: ALT 17 U/L (14-59); AST 14 U/L (15-37); Albumin 3.9 g/dL (3.4-5.0); Alkaline Phosphatase 81 U/L (46-116); Anion Gap 9.2 mmol/L (3-11); BUN 17 mg/dL (7-18); Bilirubin, Total 0.4 mg/dL (0.2-1.0); CO2 29.8 mmol/L (21.0-32.0); Calcium 11.0 mg/dL (8.5-10.1); Chloride 105 mmol/L (98-107); Estimated GFR 51.50 (mL/min/1.73m2); Potassium 3.2 mmol/L (3.5-5.1); Sodium 144 mmol/L (136-145); Total Protein 8.0 g/dL (6.4-8.2)
[2024-10-29 12:36] LABS: Glucose 31 mg/dL (74-106)
[2024-10-29] MEDS: Dextrose 25%-Water 10 ML SYR IVP ×2 (15:13→15:32)
[2024-10-29] MEDS: Mylanta Suspension 30 ML CUP PO (15:21)
== END 2024-10-29 15:32 | disposition home or self-care (01) ==
PROVIDERS: Emergency Provider Emergency Medicine; PCP Family Medicine
DX: E11.649 Type 2 diabetes mellitus with hypoglycemia without coma (principal); Z79.4 Long term (current) use of insulin
CPT/HCPCS: 99284 ×2; 36415; 36416; 82962; 96374; 96375; 96376; 80053; 82805; 83735; 85025; J2405

== ENCOUNTER 2025-02-24 14:52 | Outpatient (REF) | payer BC, SELFPAY ==
[2025-02-24 15:52] LABS: ALT 12 U/L (10-49); AST 16 U/L (<34); Albumin 4.4 g/dL (3.2-5.0); Alkaline Phosphatase 89 U/L (46-116); Anion Gap 11.9 mmol/L (3-11); BUN 26 mg/dL (9-23); Bilirubin, Total 0.4 mg/dL (0.2-1.2); CO2 26.1 mmol/L (20.0-31.0); Calcium 10.6 mg/dL (8.3-10.6); Chloride 106 mmol/L (98-107); Cholesterol 204 mg/dL (<200); Glucose 235 mg/dL (74-106); HDL Cholesterol 87 mg/dL (>or=50); Potassium 4.5 mmol/L (3.5-5.1); Sodium 144 mmol/L (136-145); Total Protein 7.5 g/dL (5.7-8.2)
== END 2025-02-24 14:53 | disposition home or self-care (01) ==
LOC: NCHCN 14:52
PROVIDERS: PCP Family Medicine; Visit Provider Nurse Practitioner Family
DX: E83.52 Hypercalcemia (principal); E11.9 Type 2 diabetes mellitus without complications
CPT/HCPCS: 80053; 80061

== ENCOUNTER 2025-03-03 14:46 | Outpatient (REF) | payer BC, SELFPAY | END 2025-03-03 14:47 | disposition home or self-care (01) | LOC: NCHCN 14:46 | PROVIDERS: PCP Family Medicine; Visit Provider Family Medicine | DX: R30.0 Dysuria (principal) | CPT/HCPCS: 87077; 87086; 87186 ==